=== PATIENT | female | born 1995 | race Caucasian/White ===

== ENCOUNTER 2017-07-20 07:53 | Emergency (ER) | payer SELFPAY ==
[~2017-07-20] VITALS: Ht 160 cm; Wt 55.8 kg
[2017-07-20 08:03] VITALS: BP 125/85
[2017-07-20] MEDS ORDERED: NAPR500T PO (08:19)
[2017-07-20] MEDS ORDERED: HYDR-2758 PO (08:19)
[2017-07-20] MEDS ORDERED: PENI500T PO (08:19)
--- NOTE | 2017-07-20 08:19 | PHYS DOC ---
Past History Past Medical History: No Pertinent History Past Surgical History: No Surgical History Smoking: Non-smoker Alcohol Use: None Drug Use: None Adult General Chief Complaint Chief Complaint: DENTAL PROBLEM HPI HPI Patient is a pleasant 22-year-old female who presents with 3 day history of tooth pain with radiation to the jaw. It began spontaneously 3 days ago she noted increased localized swelling to the lower jaw on the left pain with chewing and hot and cold foods. She denies any prior dental issues, denies any trauma to her mouth, denies any fevers, chills or other symptoms. She denies any URI symptoms, tinnitus, hearing loss or any earache. The pain as throbbing and aching a 10 of 10 at this time. She is not taking [id number] medications treat her symptoms. She does pressure teeth and floss on a regular basis. Review of Systems Review of Systems Constitutional: Denies fever or chills [] Eyes: Denies change in visual acuity, redness, or eye pain [] HENT: Denies nasal congestion or sore throat [] Respiratory: Denies cough Musculoskeletal: Denies back pain or joint pain [] Integument: Denies rash or skin lesions [] Neurologic: Denies headache, focal weakness or sensory changes [] Physical Exam Physical Exam Vital signs on the chart within normal limits. Constitutional: Well developed, well nourished, patient obviously uncomfortable with only slight swelling to the lower left jawline. HENT: Normocephalic, atraumatic, bilateral external ears normal, oropharynx moist, no oral exudates, nose normal. She has a slight irritation to the gingival mucosa with mild soft tissue swelling around tooth #17 patient looks as she's having an eruption of her wisdom tooth. There is no obvious dental caries, there is minimal tenderness to percussion. She has no trismus[] Eyes: PERRLA, EOMI, conjunctiva normal, no discharge. [] Neck: Normal range of motion, no tenderness, supple, no stridor. [] Cardiovascular:Heart rate regular rhythm, no murmur [] Lungs & Thorax: Bilateral breath sounds clear to auscultation [] Skin: Warm, dry, no erythema, no rash. [] Neurologic: Alert and oriented X 3, [] Psychologic: Affect normal, judgement normal, mood normal. [] EKG EKG [] Radiology/Procedures Radiology/Procedures [] Course & Med Decision Making Course & Med Decision Making Pertinent Labs and Imaging studies reviewed. (See chart for details) patient presents with gingival irritation associated with wisdom tooth eruption. There is no obvious signs of concomitant abscess or buccal or lingual gingival cellulitis. [] Dragon Disclaimer Dragon Disclaimer This chart was dictated in whole or in part using Voice Recognition software in a busy, high-work load, and often noisy Emergency Department environment. It may contain unintended and wholly unrecognized errors or omissions. Departure Departure: Impression: Primary Impression: Dental caries Additional Impression: Pericoronitis Disposition: HOME, SELF-CARE Condition: IMPROVED Referrals: PCP,NO (PCP) Patient Instructions: Dental Caries, Pericoronitis Additional Instructions: My discharge plan Follow up: In addition patient is asked to followup with their primary doctor, within a week for followup examination and to address patient's ongoing medical conditions. Because patient does not have a regular medical doctor, a local physician Resource Sheet will be provided to establish care primary care. Patient is advised that in the Emergency Department primary complaints are addressed and only in light of known signs and symptoms. Patient should return immediately to the emergency department if new signs and symptoms develop or patient's condition worsens in any way. At time of discharge patient was in stable condition and had verbalized understanding of the discharge instructions. Please follow-up with her local dentist as well to help you with this particular issue with the eruption of the wisdom tooth. We have provided today would not fix this issue permanently but only treat symptoms. He will need more definitive management please Scripts Hydrocodone Bit/Acetaminophen (HYDROCODONE-APAP 5-325 ) 1 Each Tablet 1 TAB PO PRN Q6HRS Y for PAIN for 5 Days, #10 TAB 0 Refills Prov: KATHERINE KIMBALL MD 07/20/17 Penicillin V Potassium (PENICILLIN V POTASSIUM) 500 Mg Tablet 1 TAB PO QID, #40 TAB Prov: KATHERINE KIMBALL MD 07/20/17 Naproxen (NAPROSYN) 500 Mg Tablet 1 TAB PO BID, #20 TAB 1 Refill Prov: KATHERINE KIMBALL MD 07/20/17 Problem Qualifiers KATHERINE KIMBALL MD Jul 20, 2017 08:19
== END 2017-07-20 08:24 | disposition home or self-care (01) ==
LOC: ER 07:53
DX: K02.9 Dental caries, unspecified (principal); K05.30 Chronic periodontitis, unspecified
CPT/HCPCS: 99283

== ENCOUNTER 2017-09-04 13:06 | Emergency (ER) | payer MEDICAID ==
[~2017-09-04] VITALS: Ht 160 cm; Wt 55.8 kg
[~2017-09-04 13:06] MED LIST: HYDR-2758 PO; NAPR500T PO; PENI500T PO
[2017-09-04 13:20] VITALS: BP 125/85
--- NOTE | 2017-09-04 13:54 | PHYS DOC ---
General Chief Complaint: CHEST PAIN Stated Complaint: N/V Time Seen by MD: 13:53 Source: patient Exam Limitations: no limitations Problems: History of Present Illness Initial Comments Epigastric pain. Patient states that for the past 2 days she's had by mouth intolerance with consistent nausea and vomiting and dry heaves. She's seen no blood or mucus, she feels very dehydrated and denies the chance of because her spouse has vasectomy. She denies travel or bad food exposure, no fever chills she's had some body aches and headache today when up and active. Patient also complains of pain with deep breaths and certain movements, she trace of the outline of her diaphragm from the epigastrium bilaterally around to her back. She states it hurts when she pushes here as I observe her to push under her ribs into the diaphragm muscle. She denies any actual chest pain or trouble breathing no cough or dyspnea on exertion. ED vital signs are stable. Timing/Duration: other (2 days) Severity: severe Modifying Factors: worse with eating Associated Symptoms: headaches, nausea/vomiting, other Allergies: Coded Allergies: No Known Drug Allergies (Unverified , 07/20/17) Past Medical History Medical History: no pertinent history Surgical History: noncontributory Para: 2 : 2 Social History Smoker: non-smoker Alcohol: none Drugs: none Review of Systems Constitutional: denies chills, denies diaphoresis, denies fever, malaise Respiratory: denies cough, denies shortness of breath, denies wheezing Cardiovascular: see HPI, denies chest pain, denies palpitations, denies syncope Gastrointestinal: see HPI, abdominal pain, denies constipation, diarrhea, nausea, vomiting Genitourinary: denies dysuria, denies frequency, denies hematuria Musculoskeletal: see HPI, denies back pain, denies joint swelling, denies neck pain Psychiatric/Neurological: headache, denies numbness, denies paresthesia, denies weakness Hematologic/Lymphatic: denies blood clots, denies easy bleeding, denies easy bruising ( of) Physical Exam General Appearance: WD/WN, mild distress Eyes: bilateral eye normal inspection, bilateral eye PERRL, bilateral eye EOMI Ear, Nose, Throat: hearing grossly normal, normal ENT inspection (dry membranes , piercing left nare), normal pharynx Neck: non-tender, supple Respiratory: normal breath sounds, no respiratory distress Cardiovascular: normal peripheral pulses, regular rate, rhythm Gastrointestinal: normal bowel sounds, soft, no organomegaly, other (negative Arevalo negative McBurney, generalized abdominal wall muscle and anterior diaphragm tenderness to palpation no rebound or guarding no masses palpable.) Rectal: deferred Back: no CVA tenderness, no vertebral tenderness Extremities: normal range of motion, non-tender, normal inspection Neurologic/Psychiatric: network developer II-XII nml as tested, no motor/sensory deficits, alert, normal mood/affect, oriented x 3 Skin: normal color, warm/dry Orders, Labs, Meds I discussed findings with the patient and she is reassured and relieved. I discussed treatment options, the patient is offered IV hydration and anti- emetics however she states she has small children at home and would like to get back to them. I discussed oral and FL medications as well as [id number] medications, discussed oral hydration and dietary recommendations moving forward. Signs and symptoms to monitor as well as urgent reasons to return the emergency department were discussed and the patient's questions were answered to her satisfaction. She expressed agreement and understanding with the treatment plan. Departure Time of Disposition: 13:57 Disposition: 01 HOME, SELF-CARE Diagnosis: gastroenteritis likely viral, dehydration, diaphra Condition: STABLE Patient Instructions: Dehydration, Adult, Ohon-[id number], Viral Gastroenteritis, Bhet-[id number] Additional Instructions: Clear liquids today, advance to bland diet tomorrow as tolerated. Aggressive hydration with Gatorade or water. Eat one banana daily to keep potassium levels up while dehydrated. Prescription: Zofran ODT, Phenergan 25 mg suppository Follow-up with your doctor in 3-5 days if no improvement. Return to the ED with new or changing symptoms. ANUJA BEY DO Sep 04, 2017 13:54
[2017-09-04] MEDS ORDERED: ONDA4TAB10 PO (13:56)
[2017-09-04] MEDS ORDERED: PROM25SU32 RC (13:56)
[2017-09-04] MEDS ORDERED: ONDANSETRON ODT 4 MG TAB.RAPDIS PO ONE (14:00)
--- NOTE | 2017-09-05 09:43 | EKG ---
[address] [address] Test Date: 2017-09-04 Test Time: 13:17:45 Pat Name: PENNY VILLARREAL Department: Room: Gender: F Ironworker: KENNEDY : 1995 Requested By: ANUJA BEY Order Number: [id number] Reading MD: Robinson Alba MD Measurements Intervals [place] Rate: 67 P: 58 MI: 136 QRS: 80 QRSD: 80 T: 51 QT: 402 QTc: 428 Interpretive Statements SINUS RHYTHM Electronically Signed On 09-05-2017 10:10:01 PIPE STEM REPAIRER by Robinson Alba MD
== END 2017-09-04 14:05 | disposition home or self-care (01) ==
LOC: ER 13:06
DX: K52.9 Noninfective gastroenteritis and colitis, unspecified (principal); E86.0 Dehydration; R51 Headache
CPT/HCPCS: 99283; Q0162

== ENCOUNTER 2017-09-06 09:47 | Emergency (ER) | payer SELFPAY ==
[~2017-09-06] VITALS: Ht 160 cm; Wt 55.9 kg
[~2017-09-06 09:47] MED LIST changes: +ONDA4TAB10 PO; +PROM25SU32 RC
[2017-09-06] MEDS ORDERED: IV NORMAL SALINE 1,000ML 1,000 ML IV ONE ×2 (10:00→11:00)
[2017-09-06 10:27] LABS: BASO # 0.1 x10^3/uL (0.0-0.2); BASO % 1 % (0-3); EOS # 0.1 x10^3/uL (0.0-0.7); EOS % 1 % (0-3); HEMATOCRIT 47.3 % (36.0-47.0); HEMOGLOBIN 16.7 g/dL (12.0-15.5); LYMPH # 1.8 x10^3/uL (1.0-4.8); LYMPH % 15 % (24-48); MEAN CORPUSCULAR HEMOGLOBIN 33 pg (25-35); MEAN CORPUSCULAR HGB CONC 35 g/dL (31-37); MEAN CORPUSCULAR VOLUME 94 fL (79-100); MONO % 9 % (0-9); NEUT # 8.9 x10^3uL (1.8-7.7); NEUT % 75 % (31-73); PLATELET COUNT 245 x10^3/uL (140-400); RED BLOOD COUNT 5.05 x10^6/uL (3.50-5.40); RED CELL DISTRIBUTION WIDTH 11.7 % (11.5-14.5); WHITE BLOOD COUNT 11.9 x10^3/uL (4.0-11.0)
[2017-09-06] MEDS ORDERED: ONDANSETRON PF 4 MG/2 ML VIAL. IV ONE (10:30)
[2017-09-06 10:42] LABS: ALBUMIN 5.3 g/dL (3.4-5.0); ALBUMIN/GLOBULIN RATIO 1.4 (1.0-1.7); CALCIUM 9.8 mg/dL (8.5-10.1); CREATININE 1.1 mg/dL (0.6-1.0); GFR 63.3; MAGNESIUM 2.2 mg/dL (1.8-2.4); POTASSIUM 3.2 mmol/L (3.5-5.1); TOTAL PROTEIN 9.2 g/dL (6.4-8.2)
[2017-09-06] MEDS ORDERED: POTASSIUM CHLORIDE 20MEQ 100 ML IV ONE (11:30)
[2017-09-06] MEDS ORDERED: IOHEXOL 300 MG/ML 75 ML VIAL. IV ONE (11:30)
[2017-09-06] MEDS ORDERED: IOHEXOL 240 MG/ML 50ML VIAL. PO ONE (11:45)
[2017-09-06 12:38] LABS: BILIRUBIN,URINE NEG (NEG); CLARITY,URINE CLOUDY; COLOR,URINE YELLOW; GLUCOSE,URINE NEG (NEG)
[2017-09-06 12:39] LABS: AMORPHOUS SEDIMENT,UR PRESENT /HPF; BACTERIA,URINE 0 /HPF (0-FEW); NITRITE,URINE NEG (NEG); RBC,URINE 0 /HPF (0-2); SQUAMOUS EPITHELIAL CELL,UR MOD /LPF; UROBILINOGEN,URINE 0.2 mg/dL (0.2 mg/dL)
--- NOTE | 2017-09-06 13:09 | RAD ---
CT of the abdomen and pelvis with contrast, 09/06/2017: History: Right lower quadrant pain, vomiting and fever Multidetector CT imaging was performed following oral and IV administration of contrast. The lung bases are clear. No hepatic abnormality is detected. The gallbladder is of normal size. No dense gallstones are seen. No pancreatic abnormality is detected. The spleen is of normal size. No renal or adrenal abnormality is detected. No abdominal or pelvic adenopathy is seen. The ovaries are within normal limits in size. The uterus is unremarkable. There is mild diffuse bladder wall thickening. Poor distention of the urinary bladder is probably containing this appearance. The oral contrast material has not reached the distal small bowel. There are radiopacities mixed with stool in the right colon, probably representing medication. The cecum is low-lying in the pelvis. Portions of what is probably the appendix are visualized, containing gas and a small amount of radiopaque material. No dilated appendix or pericecal inflammation is seen to suggest acute appendicitis. The bowel loops are not dilated. No free air or significant free fluid is evident in the abdomen or pelvis. IMPRESSION: 1. Radiopaque material in the appendix without evidence of acute appendicitis. 2. Mild diffuse bladder wall thickening, probably related to lack of bladder distention. Cystitis cannot be excluded. Clinical correlation is suggested. PQRS Compliance Statement: One or more of the following individualized dose reduction techniques were utilized for this examination: 1. Automated exposure control 2. Adjustment of the mA and/or kV according to patient size 3. Use of iterative reconstruction technique
--- NOTE | 2017-09-06 14:16 | PHYS DOC ---
Past History Past Medical History: No Pertinent History Past Surgical History: No Surgical History Smoking: Non-smoker Alcohol Use: None Drug Use: None Adult General Chief Complaint Chief Complaint: NAUSEA/VOMITING/DIARRHEA HPI HPI Patient is a 22 year old F who presents with persistent nausea vomiting diarrhea and abdominal pain. She states that these symptoms began 3-4 days ago and have progressively worsened. She was seen in the emergency room 2 days ago for the same symptoms. States that her pain initially was centrally located in her abdomen and is now more in the right lower quadrant. She describes poor appetite associated with these symptoms. She also feels that she has had fever sweats and chills. Chills that eating makes the symptoms worse as well as moving and palpating the abdomen. Review of Systems Review of Systems Constitutional: Negative except history of present illness Eyes: Denies change in visual acuity, redness, or eye pain [] HENT: Denies nasal congestion or sore throat [] Respiratory: Denies cough or shortness of breath [] Cardiovascular: No additional information not addressed in HPI [] GI: Negative except history of present illness : Denies dysuria or hematuria [] Musculoskeletal: Denies back pain or joint pain [] Integument: Denies rash or skin lesions [] Neurologic: Denies headache, focal weakness or sensory changes [] Endocrine: Denies polyuria or polydipsia [] All other systems were reviewed and found to be within normal limits, except as documented in this note. Family History Family History Noncontributory Current Medications Current Medications Current Medications Medications (Trade) Dose Ordered Sig/Luiza Start Time Stop Time Status Last Admin Dose Admin Iohexol (Omnipaque 240 Mg/ml) 30 ml 1X ONCE 09/06/17 11:45 09/06/17 11:46 DC 09/06/17 12:20 30 ML Iohexol (Omnipaque 300 Mg/ml) 75 ml 1X ONCE 09/06/17 11:30 09/06/17 11:35 DC 09/06/17 12:49 75 ML Ondansetron HCl (Zofran) 4 mg 1X ONCE 09/06/17 10:30 09/06/17 10:31 DC 09/06/17 10:30 4 MG Potassium Chloride 100 ml @ 50 mls/hr 1X ONCE 09/06/17 11:30 09/06/17 13:29 DC 09/06/17 13:06 50 MLS/HR Sodium Chloride 1,000 ml @ 250 mls/hr 1X ONCE 09/06/17 11:00 09/06/17 14:59 09/06/17 12:10 250 MLS/HR Allergies Allergies Allergies Coded Allergies Type Severity Reaction Last Updated Verified No Known Drug Allergies 07/20/17 No Physical Exam Physical Exam Constitutional: Well developed, well nourished, non-toxic appearance. Mild distress noted HENT: Normocephalic, atraumatic, bilateral external ears normal, oropharynx moist, no oral exudates, nose normal. Eyes: EOMI, conjunctiva normal, no discharge. Neck: Normal range of motion, no tenderness, supple, no stridor. Cardiovascular:Heart rate regular rhythm, Lungs & Thorax: Bilateral breath sounds clear to auscultation [] Abdomen: Bowel sounds normal, soft, no masses, no pulsatile masses. Mild generalized tenderness with moderate tenderness in the right lower quadrant Skin: Warm, dry, no erythema, no rash. [] Back: No tenderness, no CVA tenderness. [] Extremities: No tenderness, no cyanosis, no clubbing, ROM intact, no edema. [] Neurologic: Alert and oriented X 3, normal motor function, normal sensory function, no focal deficits noted. [] Psychologic: Affect normal, judgement normal, mood normal. [] Current Patient Data Vital Signs Vital Signs Date Time Temp Pulse Resp B/P (MAP) Pulse Ox O2 Delivery O2 Flow Rate FiO2 09/06/17 10:20 97.7 76 20 96 Room Air Lab Results Laboratory Tests Test 09/06/17 10:13 09/06/17 12:13 09/06/17 13:28 White Blood Count 11.9 x10^3/uL (4.0-11.0) H Red Blood Count 5.05 x10^6/uL (3.50-5.40) Hemoglobin 16.7 g/dL (12.0-15.5) H Hematocrit 47.3 % (36.0-47.0) H Mean Corpuscular Volume 94 fL (79-100) Mean Corpuscular Hemoglobin 33 pg (25-35) Mean Corpuscular Hemoglobin Concent 35 g/dL (31-37) Red Cell Distribution Width 11.7 % (11.5-14.5) Platelet Count 245 x10^3/uL (140-400) Neutrophils (%) (Auto) 75 % (31-73) H Lymphocytes (%) (Auto) 15 % (24-48) L Monocytes (%) (Auto) 9 % (0-9) Eosinophils (%) (Auto) 1 % (0-3) Basophils (%) (Auto) 1 % (0-3) Neutrophils # (Auto) 8.9 x10^3uL (1.8-7.7) H Lymphocytes # (Auto) 1.8 x10^3/uL (1.0-4.8) Monocytes # (Auto) 1.0 x10^3/uL (0.0-1.1) Eosinophils # (Auto) 0.1 x10^3/uL (0.0-0.7) Basophils # (Auto) 0.1 x10^3/uL (0.0-0.2) Sodium Level 136 mmol/L (136-145) Potassium Level 3.2 mmol/L (3.5-5.1) L Chloride Level 97 mmol/L (98-107) L Carbon Dioxide Level 26 mmol/L (21-32) Anion Gap 13 (6-14) Blood Urea Nitrogen 19 mg/dL (7-20) Creatinine 1.1 mg/dL (0.6-1.0) H Estimated GFR (Cockcroft-Gault) 63.3 BUN/Creatinine Ratio 17 (6-20) Glucose Level 100 mg/dL (70-99) H Calcium Level 9.8 mg/dL (8.5-10.1) Magnesium Level 2.2 mg/dL (1.8-2.4) Total Bilirubin 4.0 mg/dL (0.2-1.0) H Aspartate Amino Transferase (AST) 18 U/L (15-37) Alanine Aminotransferase (ALT) 28 U/L (14-59) Alkaline Phosphatase 54 U/L (46-116) Total Protein 9.2 g/dL (6.4-8.2) H Albumin 5.3 g/dL (3.4-5.0) H Albumin/Globulin Ratio 1.4 (1.0-1.7) Urine Collection Type Unknown Urine Color Yellow Urine Clarity Cloudy Urine pH 8.5 Urine Specific [place] 1.015 Urine Protein 30 mg/dl (NEG-TRACE) Urine Glucose (UA) Neg mg/dL (NEG) Urine Ketones (Stick) >=160 mg/dL (NEG) Urine Blood Neg (NEG) Urine Nitrite Neg (NEG) Urine Bilirubin Neg (NEG) Urine Urobilinogen Dipstick 0.2 mg/dL (0.2 mg/dL) Urine Leukocyte Esterase Neg (NEG) Urine RBC 0 /HPF (0-2) Urine WBC 1-4 /HPF (0-4) Urine Squamous Epithelial Cells Mod /LPF Urine Amorphous Sediment Present /HPF Urine Bacteria 0 /HPF (0-FEW) Urine Mucus Slight /LPF POC Urine HCG, Qualitative hcg negative (Negative) EKG EKG [] Radiology/Procedures Radiology/Procedures CT abdomen and pelvis Impressions: Radiology report was reviewed. Radiopaque material was noted in the appendix without evidence of acute appendicitis. Course & Med Decision Making Course & Med Decision Making Pertinent Labs and Imaging studies reviewed. (See chart for details) [] Dragon Disclaimer Dragon Disclaimer This electronic medical record was generated, in whole or in part, using a voice recognition dictation system. Julianna was given IV fluids and nausea medication. She did have a CT with contrast and felt that her pain was moderately worse after drinking oral contrast. She has been unable to drink any other liquids due to nausea and pain. Surgery was contacted by phone and the case was reviewed. Given her symptoms of generalized pain progressing to localized pain with nausea vomiting diarrhea and decreased appetite early appendicitis is possible. Surgery recommended transfer for surgical evaluation. Departure Departure: Impression: Primary Impression: Persistent vomiting Disposition: 05 XFER OTHER Condition: STABLE Referrals: PCP,NO (PCP) CLARIBEL BURNS MD Sep 06, 2017 14:16
[2017-09-06 16:11] VITALS: BP 116/79
== END 2017-09-06 16:43 | disposition short-term general hospital (02) ==
LOC: ER 09:47
DX: R11.2 Nausea with vomiting, unspecified (principal); R19.7 Diarrhea, unspecified; R10.84 Generalized abdominal pain
CPT/HCPCS: 36415; 74177; 80053; 81001; 81025; 82248; 83735; 85025; 96361; 96365; 96366; 96375; 99285; J2405; J3480; Q9966; Q9967; J7030

== ENCOUNTER 2019-12-27 08:40 | Emergency (ER) | payer SELFPAY ==
[~2019-12-27] VITALS: Ht 160 cm; Wt 67.7 kg
[~2019-12-27 08:40] MED LIST changes: +HYDR-2155 PO; -HYDR-2758 PO; +NAPR-683 PO; -NAPR500T PO
[2019-12-27 08:45] VITALS: BP 132/80
[2019-12-27 10:10] LABS: BILIRUBIN,URINE NEG (NEG); CLARITY,URINE HAZY; COLOR,URINE YELLOW; GLUCOSE,URINE NEG (NEG); NITRITE,URINE NEG (NEG); UROBILINOGEN,URINE 0.2 mg/dL (0.2 mg/dL)
[2019-12-27 10:11] LABS: BACTERIA,URINE FEW /HPF (0-FEW); SQUAMOUS EPITHELIAL CELL,UR FEW /LPF
--- NOTE | 2019-12-27 10:17 | PHYS DOC ---
Past History Past Medical History: No Pertinent History Past Surgical History: No Surgical History Smoking: Non-smoker Alcohol Use: Occasionally Drug Use: None Adult General Chief Complaint Chief Complaint: NAUSEA/VOMITING/DIARRHEA HPI HPI Patient is a 24-year-old female who presented to ER today for evaluation with different complaint. Patient complained of hot flashes, fever and chills sore throat for 2 days. Patient also complained of heartburn. Patient also complained of nausea. Patient also complained of vaginal discharge for a week. Patient is sexually active with 1 partner, her partner had no problem. Patient denies any pain with urination, denies any pain with sexual intercourse, patient described the discharge as white, no foul smelling. Patient complained of urgency with urination but very little urine came out. Patient denies any abdominal pain. Patient denies any pelvic pain. Review of Systems Review of Systems Constitutional: Positive for fever or chills [] Eyes: Denies change in visual acuity, redness, or eye pain [] HENT: Denies nasal congestion or sore throat [] Respiratory: Denies cough or shortness of breath [] Cardiovascular: No additional information not addressed in HPI [] GI: Denies abdominal pain, Positive for nausea, NO vomiting, bloody stools or diarrhea [] : Denies dysuria or hematuria. Positive for vaginal discharge and urinary urgency Musculoskeletal: Denies back pain or joint pain [] Integument: Denies rash or skin lesions [] Neurologic: Denies headache, focal weakness or sensory changes [] Endocrine: Denies polyuria or polydipsia [] All other systems were reviewed and found to be within normal limits, except as documented in this note. Allergies Allergies Allergies Coded Allergies Type Severity Reaction Last Updated Verified No Known Drug Allergies 07/20/17 No Physical Exam Physical Exam Constitutional: Well developed, well nourished, no acute distress, non-toxic appearance. [] HENT: Normocephalic, atraumatic, bilateral external ears normal, oropharynx moist WITH ERYTHEMA, no oral exudates, nose normal. [] Eyes: PERRLA, EOMI, conjunctiva normal, no discharge. [] Neck: Normal range of motion, no tenderness, supple, no stridor. [] Cardiovascular:Heart rate regular rhythm, no murmur [] Lungs & Thorax: Bilateral breath sounds clear to auscultation [] Abdomen: Bowel sounds normal, soft, no tenderness, no masses, no pulsatile masses. [] Skin: Warm, dry, no erythema, no rash. [] Back: No tenderness, no CVA tenderness. [] Extremities: No tenderness, no cyanosis, no clubbing, ROM intact, no edema. [] Neurologic: Alert and oriented X 3, normal motor function, normal sensory function, no focal deficits noted. [] Psychologic: Affect normal, judgement normal, mood normal. [] Current Patient Data Vital Signs Vital Signs Date Time Temp Pulse Resp B/P (MAP) Pulse Ox O2 Delivery O2 Flow Rate FiO2 12/27/19 08:45 98.4 89 16 132/80 (97) 99 Room Air Lab Results Laboratory Tests Test 12/27/19 09:41 12/27/19 09:53 Urine Collection Type Unknown Urine Color Yellow Urine Clarity Hazy Urine pH 5.5 Urine Specific [place] 1.025 Urine Protein Neg (NEG-TRACE) Urine Glucose (UA) Neg mg/dL (NEG) Urine Ketones (Stick) 80 mg/dL (NEG) Urine Blood Small (NEG) Urine Nitrite Neg (NEG) Urine Bilirubin Neg (NEG) Urine Urobilinogen Dipstick 0.2 mg/dL (0.2 mg/dL) Urine Leukocyte Esterase Neg (NEG) Urine RBC 6-10 /HPF (0-2) Urine WBC 1-4 /HPF (0-4) Urine Squamous Epithelial Cells Few /LPF Urine Bacteria Few /HPF (0-FEW) Urine Mucus Mod /LPF POC Urine HCG, Qualitative hcg negative (Negative) EKG EKG [] Radiology/Procedures Radiology/Procedures [] Course & Med Decision Making Course & Med Decision Making Pertinent Labs and Imaging studies reviewed. (See chart for details) Patient says She is not worried about STD, just wanted to be treated for VAGINAL discharge. Dragon Disclaimer Dragon Disclaimer This electronic medical record was generated, in whole or in part, using a voice recognition dictation system. Departure Departure: Impression: Primary Impression: Vaginal discharge Additional Impression: Viral syndrome Disposition: HOME, SELF-CARE Condition: STABLE Referrals: PCP,NO (PCP) Patient Instructions: Vaginitis, [id number], Viral Syndrome Additional Instructions: Thank you for visiting our Emergency Department. We appreciate you trusting us with your care. If any additional problems come up don't hesitate to return to visit us. Please follow up with your primary care provider so they can plan additional care if needed and know about the problem that you had. If symptoms worsen come back to the Emergency Department. Any concerning symptoms that start such as chest pain, shortness of air, weakness or numbness on one side of the body, running high fevers or any other concerning symptoms return to the ER. Problem Qualifiers CLARIBEL MAO DO Dec 27, 2019 10:17
[2019-12-27 10:18] LABS: INFLUENZA A PATIENT NEGATIVE (NEGATIVE); INFLUENZA B PATIENT NEGATIVE (NEGATIVE)
[2019-12-27] MEDS ORDERED: FLUCONAZOLE 100 MG TABLET. PO ONE (10:30)
== END 2019-12-27 11:45 | disposition home or self-care (01) ==
LOC: ER 08:40
DX: N89.8 Other specified noninflammatory disorders of vagina (principal); B34.9 Viral infection, unspecified
CPT/HCPCS: 81001; 81025; 87070; 87804; 87880; 99283

== ENCOUNTER 2020-04-14 11:20 | Emergency (ER) | payer SELFPAY ==
[~2020-04-14] VITALS: Ht 160 cm; Wt 70.3 kg
[2020-04-14] MEDS ORDERED: IV NORMAL SALINE 1,000ML 1,000 ML IV ONE (11:30)
[2020-04-14] MEDS ORDERED: ONDANSETRON PF 4 MG/2 ML VIAL. IVP ONE (11:30)
--- NOTE | 2020-04-14 12:04 | PHYS DOC ---
Past History Past Medical History: No Pertinent History Past Surgical History: No Surgical History Smoking: Non-smoker Alcohol Use: Occasionally Drug Use: None General Adult EDM: Chief Complaint: NAUSEA/VOMITING/DIARRHEA HPI: HPI: 24-year-old female presents with chills and multiple episodes of vomiting. This started around 4 AM this morning. Patient is unable to keep any solids or liquids down. She even tried Pedialyte and threw that up. She is concerned about dehydration. She has global chills, but her temperature has been normal. She was feeling fine yesterday. No known sick contacts. No specific COVID-19 exposures. Review of Systems: Review of Systems: Constitutional: Chills Eyes: Denies change in visual acuity HENT: Denies nasal congestion or sore throat Respiratory: Denies cough or shortness of breath Cardiovascular: Denies chest pain or edema GI: nausea, vomiting. Denies abdominal pain, bloody stools or diarrhea : Denies dysuria Musculoskeletal: Denies back pain or joint pain Integument: Denies rash Neurologic: Denies headache, focal weakness or sensory changes Endocrine: Denies polyuria or polydipsia Lymphatic: Denies swollen glands Psychiatric: Denies depression or anxiety Heart Score: Risk Factors: Risk Factors: DM, Current or recent (<one month) smoker, HTN, HLP, family history of CAD, obesity. Risk Scores: Score 0 - 3: 2.5% MACE over next 6 weeks - Discharge Home Score 4 - 6: 20.3% MACE over next 6 weeks - Admit for Clinical Observation Score 7 - 10: 72.7% MACE over next 6 weeks - Early Invasive Strategies Current Medications: Current Meds: Current Medications Medications (Trade) Dose Ordered Sig/Luiza Start Time Stop Time Status Last Admin Dose Admin Ondansetron HCl (Zofran) 4 mg 1X ONCE 04/14/20 11:30 04/14/20 11:33 DC 04/14/20 11:49 4 MG Sodium Chloride 1,000 ml @ 1,000 mls/hr 1X ONCE 04/14/20 11:30 04/14/20 12:29 04/14/20 11:46 1,000 MLS/HR Allergies: Allergies: Allergies Coded Allergies Type Severity Reaction Last Updated Verified No Known Drug Allergies 07/20/17 No Physical Exam: PE: Constitutional: Well developed, well nourished, shivering, mild acute distress, non-toxic appearance. [] HENT: Normocephalic, atraumatic, bilateral external ears normal, oropharynx moist, no oral exudates, nose normal. [] Eyes: PERRLA, EOMI, conjunctiva normal, no discharge. [] Neck: Normal range of motion, no tenderness, supple, no stridor. [] Cardiovascular: Heart rate regular rhythm, no murmur [] Lungs & Thorax: Bilateral breath sounds clear to auscultation [] Abdomen: Bowel sounds normal, soft, no tenderness, no masses, no pulsatile masses. [] Skin: Warm, dry, no erythema, no rash. [] Back: No tenderness, no CVA tenderness. [] Extremities: No tenderness, no cyanosis, no clubbing, ROM intact, no edema. [] Neurologic: Alert and oriented X 3, normal motor function, normal sensory function, no focal deficits noted. [] Psychologic: Affect normal, judgement normal, mood normal. [] Current Patient Data: Labs: Laboratory Tests Test 04/14/20 11:58 POC Urine HCG, Qualitative hcg negative (Negative) EKG: EKG: [] Radiology/Procedures: Radiology/Procedures: [] Course & Med Decision Making: Course & Med Decision Making Pertinent Labs and Imaging studies reviewed. (See chart for details) The patient was given 4 mg of Zofran and 10 mg of Compazine IV. This did control her vomiting. She was rehydrated with normal saline 1 L. She feels well enough to go home. Her labs are unremarkable. I will discharge her with Zofran ODT tablets. She is stable for discharge at this time. [] Dragon Disclaimer: Dragon Disclaimer: This electronic medical record was generated, in whole or in part, using a voice recognition dictation system. Departure Departure: Impression: Primary Impression: Nausea & vomiting Qualified Codes: R11.2 - Nausea with vomiting, unspecified Disposition: 01 HOME/RESIDENCE PRIOR TO ADM Condition: STABLE Referrals: PCP,NO (PCP) Patient Instructions: Nausea and Vomiting, [id number] Scripts Ondansetron (ONDANSETRON ODT) 4 Mg Tab.rapdis 1 TAB PO PRN Q6-8HRS PRN for VOMITING, #16 TAB Prov: SHAUN RENTERIA DO 04/14/20 Justification of Admission: Justification of Admission: Justification of Admission Dx: N/A SHAUN RENTERIA DO Apr 14, 2020 12:04
[2020-04-14 12:10] LABS: BASO # 0.1 x10^3/uL (0.0-0.2); BASO % 1 % (0-3); EOS % 0 % (0-3); HEMOGLOBIN 14.8 g/dL (12.0-15.5); LYMPH # 1.7 x10^3/uL (1.0-4.8); LYMPH % 9 % (24-48); MEAN CORPUSCULAR HEMOGLOBIN 32 pg (25-35); MEAN CORPUSCULAR HGB CONC 34 g/dL (31-37); MEAN CORPUSCULAR VOLUME 93 fL (79-100); MONO # 0.9 x10^3/uL (0.0-1.1); MONO % 5 % (0-9); NEUT % 86 % (31-73); PLATELET COUNT 315 x10^3/uL (140-400); RED BLOOD COUNT 4.61 x10^6/uL (3.50-5.40); RED CELL DISTRIBUTION WIDTH 11.9 % (11.5-14.5); WHITE BLOOD COUNT 19.7 x10^3/uL (4.0-11.0)
[2020-04-14 12:12] LABS: CALCIUM 9.3 mg/dL (8.5-10.1); GFR 69.3; POTASSIUM 3.6 mmol/L (3.5-5.1)
[2020-04-14 12:14] LABS: BILIRUBIN,URINE NEG (NEG); CLARITY,URINE HAZY; COLOR,URINE YELLOW; GLUCOSE,URINE NEG (NEG)
[2020-04-14 12:15] LABS: BACTERIA,URINE FEW /HPF (0-FEW); NITRITE,URINE NEG (NEG); SQUAMOUS EPITHELIAL CELL,UR FEW /LPF; UROBILINOGEN,URINE 0.2 mg/dL (0.2 mg/dL)
[2020-04-14 12:19] LABS: ALBUMIN 4.6 g/dL (3.4-5.0); ALBUMIN/GLOBULIN RATIO 1.2 (1.0-1.7); TOTAL BILIRUBIN 1.1 mg/dL (0.2-1.0); TOTAL PROTEIN 8.3 g/dL (6.4-8.2)
[2020-04-14 12:35] LABS: % BANDS 2 % (0-9); % LYMPHS 7 % (24-48); % MONOS 4 % (0-10); % SEGS 87 % (35-66)
[2020-04-14 12:40] LABS: PLT ESTIMATE ADEQUATE (ADEQUATE)
[2020-04-14] MEDS ORDERED: PROCHLORPERAZINE 10 MG/2 ML VIAL. IV ONE (13:15)
[2020-04-14 13:22] VITALS: BP 127/65
[2020-04-14] MEDS ORDERED: MORPHINE SULFATE 4 MG/ML DISP.SYRIN. IV ONE (13:45)
[2020-04-14] MEDS ORDERED: IOHEXOL 300 MG/ML 75 ML VIAL. IV ONE (13:45)
[2020-04-14] MEDS ORDERED: ONDA4TAB12 PO (13:47)
== END 2020-04-14 13:53 | disposition home or self-care (01) ==
LOC: ER 11:20
DX: R11.2 Nausea with vomiting, unspecified (principal); R50.9 Fever, unspecified
CPT/HCPCS: 36415; 80053; 81001; 81025; 83690; 85007; 85025; 96361; 96374; 96375; 99284; J0780; J2405; J7030

== ENCOUNTER 2021-04-20 05:53 | Emergency (ER) | payer SELFPAY ==
[~2021-04-20] VITALS: Ht 160 cm; Wt 75.0 kg
[~2021-04-20 05:53] MED LIST changes: +ONDA4TAB12 PO
--- NOTE | 2021-04-20 05:58 | PHYS DOC ---
Past History Past Medical History: No Pertinent History Past Surgical History: Cholecystectomy Smoking: Non-smoker Alcohol Use: Occasionally Drug Use: None Adult General HPI HPI Patient is a 25-year-old female presenting for nausea vomit diarrhea. Onset of symptoms was approximately 3 hours ago and woke her from sleep. Patient reports eating kalie last night, denies any known sick contacts or recent travel. She is concerned she has gastroenteritis and is dehydrated as this is happened to her in the past. Reports she woke up with generalized abdominal cramping, nausea and has had numerous episodes of nonbloody nonbilious emesis and looser stools than usual. She has been afebrile. Denies any pertinent med ical history, no medications taken on a daily basis. Denies tobacco use, admits frequent but not dependent alcohol use with last use yesterday evening drinking x2 shots of liquor, denies marijuana or other illicit drug use. Patient has had a prior cholecystectomy otherwise no other abdominal surgeries. Review of Systems Review of Systems Fourteen body systems of review of systems have been reviewed. See HPI for pertinent positives and negative responses, other tillman all other systems are negative, non-pertinent or non-contributory Allergies Allergies Allergies Coded Allergies Type Severity Reaction Last Updated Verified No Known Drug Allergies 07/20/17 No Physical Exam Physical Exam Constitutional: Well developed, well nourished, no acute distress, non-toxic appearance. HENT: Normocephalic, atraumatic, bilateral external ears normal, oropharynx dry, no oral exudates, nose normal. Eyes: PERRLA, EOMI, conjunctiva normal, no discharge. Neck: Normal range of motion, no tenderness, supple, no stridor. Cardiovascular: Heart rate regular, sinus rhythm, no murmurs rubs or gallops Lungs & Thorax: Bilateral breath sounds clear to auscultation Abdomen: Bowel sounds normal, soft, generalized abdominal tenderness without rebound but guarding is present, no masses, no pulsatile masses. Nonsurgical abdomen, no peritoneal signs Skin: Warm, dry, no erythema, no rash. Back: No tenderness, no CVA tenderness. Extremities: No tenderness, no cyanosis, no clubbing, ROM intact, no edema. Neurologic: Alert and oriented X 3, grossly normal motor & sensory function, no focal deficits noted. Psychologic: Anxious affect and mood Current Patient Data Vital Signs Vital Signs Date Time Temp Pulse Resp B/P (MAP) Pulse Ox O2 Delivery O2 Flow Rate FiO2 04/20/21 06:03 97.6 79 20 95 Room Air Vital Signs Date Time Temp Pulse Resp B/P (MAP) Pulse Ox O2 Delivery O2 Flow Rate FiO2 04/20/21 06:03 97.6 79 20 95 Room Air Lab Results Laboratory Tests Test 04/20/21 06:05 04/20/21 06:08 04/20/21 06:20 Urine Collection Type Unknown Urine Color Yellow Urine Clarity Clear Urine pH >8.5 Urine Specific Desdemona 1.020 Urine Protein 100 mg/dl Urine Glucose (UA) Neg mg/dL Urine Ketones (Stick) Trace mg/dL Urine Blood Mod Urine Nitrite Neg Urine Bilirubin Neg Urine Urobilinogen Dipstick 1.0 mg/dL Urine Leukocyte Esterase Neg Urine RBC 11-20 /HPF Urine WBC Rare /HPF Urine Squamous Epithelial Cells Occ /LPF Urine Bacteria 0 /HPF Urine Mucus Slight /LPF White Blood Count 15.2 x10^3/uL Red Blood Count 4.57 x10^6/uL Hemoglobin 15.1 g/dL Hematocrit 43.6 % Mean Corpuscular Volume 95 fL Mean Corpuscular Hemoglobin 33 pg Mean Corpuscular Hemoglobin Concent 35 g/dL Red Cell Distribution Width 13.1 % Platelet Count 302 x10^3/uL Neutrophils (%) (Auto) 80 % Lymphocytes (%) (Auto) 13 % Monocytes (%) (Auto) 6 % Eosinophils (%) (Auto) 0 % Basophils (%) (Auto) 1 % Neutrophils # (Auto) 12.2 x10^3uL Lymphocytes # (Auto) 2.0 x10^3/uL Monocytes # (Auto) 0.9 x10^3/uL Eosinophils # (Auto) 0.0 x10^3/uL Basophils # (Auto) 0.1 x10^3/uL Segmented Neutrophils % 73 % Band Neutrophils % 1 % Lymphocytes % 21 % Monocytes % 4 % Metamyelocytes % 1 % Platelet Estimate Adequate Sodium Level 145 mmol/L Potassium Level 3.2 mmol/L Chloride Level 106 mmol/L Carbon Dioxide Level 26 mmol/L Anion Gap 13 Blood Urea Nitrogen 13 mg/dL Creatinine 1.0 mg/dL Estimated GFR (Cockcroft-Gault) 68.7 BUN/Creatinine Ratio 13 Glucose Level 131 mg/dL Calcium Level 8.4 mg/dL Total Bilirubin 1.4 mg/dL Aspartate Amino Transf (AST/SGOT) 17 U/L Alanine Aminotransferase (ALT/SGPT) 20 U/L Alkaline Phosphatase 77 U/L Total Protein 7.6 g/dL Albumin 4.4 g/dL Albumin/Globulin Ratio 1.4 Lipase 156 U/L Bedside Urine HCG, Qualitative hcg negative Current Medications Medications (Trade) Dose Ordered Sig/Luiza Route PRN Reason Start Time Stop Time Status Last Admin Dose Admin Sodium Chloride 1,000 ml @ 1,000 mls/hr 1X ONCE IV 04/20/21 06:30 04/20/21 07:29 DC 04/20/21 06:58 Fentanyl Citrate (Fentanyl 2ml Vial) 50 mcg 1X ONCE IVP 04/20/21 06:30 04/20/21 06:33 DC 04/20/21 06:58 Ondansetron HCl (Zofran) 4 mg 1X ONCE IVP 04/20/21 06:30 04/20/21 06:33 DC 04/20/21 06:57 Multi-Ingredient Mouthwash/Gargle (Gi Cocktail) 20 ml 1X ONCE PO 04/20/21 07:30 04/20/21 07:35 DC 04/20/21 07:32 Multi-Ingredient Mouthwash/Gargle (Gi Cocktail) 20 ml STK-MED ONCE .ROUTE 04/20/21 07:28 04/20/21 07:28 DC Metoclopramide HCl (Reglan Vial) 10 mg 1X ONCE IVP 04/20/21 08:00 04/20/21 08:01 DC Morphine Sulfate (Morphine 4mg Syringe) 4 mg 1X ONCE IV 04/20/21 08:00 04/20/21 08:01 DC Potassium Chloride (Klor-Con) 40 meq 1X ONCE PO 04/20/21 08:00 04/20/21 08:01 DC EKG EKG [] Radiology/Procedures Radiology/Procedures [] Heart Score C/O Chest Pain: No Risk Factors: Risk Factors: DM, Current or recent (<one month) smoker, HTN, HLP, family history of CAD, obesity. Risk Scores: Risk Factors: DM, Current or recent (<one month) smoker, HTN, HLP, family history of CAD, obesity. Course & Med Decision Making Course & Med Decision Making ABCs unremarkable. I disclosed entirety of ER findings and discussed most likely diagnosis of likely self-limiting gastrointestinal disease such as gastritis versus gastroenteritis versus other. Patient responded to ER intervention that included IV fluid rehydration, antiemetic and pain medication. Patient symptoms did not ever fully resolve while in ER and so, I disclosed potential role for imaging. Patient feels that her current episode is similar to past episodes of gastroenteritis and feels it will be self-limiting, she is deferring CT imaging of abdomen and requesting to go home for continued supportive care. As such, I stressed need for close outpatient follow-up to review today's ER visit. Strict return precautions were also discussed at length with good understanding by patient. Patient voiced understanding and agreement with the plan. Patient knows to come back for repeat evaluation if concerning signs or symptoms present prior to outpatient follow-up. Hemodynamically stable, ambulatory and well- appearing at time of disposition. Dragon Disclaimer Dragon Disclaimer This electronic medical record was generated, in whole or in part, using a voice recognition dictation system. Departure Departure: Impression: Primary Impression: Nausea, vomiting, and diarrhea Disposition: 01 HOME / SELF CARE / HOMELESS Condition: IMPROVED Referrals: PCP,NO (PCP) Patient Instructions: Nausea and Vomiting Additional Instructions: You were seen for nausea, vomit and diarrhea. You most likely have a viral illness which should resolve in the next few days to a week. As mention, you might be suffering from a condition called gastritis which you have suffered from in the past and should respond to similar supportive care practices. Please practice good bowel rest and avoid any hot and spicy foods, excessive caffeine etc. You should also utilize prescribed antinausea medicine as needed. Prioritize good fluids such as Pedialyte. You should return to the ED if you develop abdominal pain, fever > 100.3, black/bloody stools, black/bloody vomiting, cannot keep water down, or any other new or concerning symptoms. Scripts Metoclopramide Hcl (REGLAN) 5 Mg Tablet 1 TAB PO TID for NAUSEA for 5 Days, #15 TAB 0 Refills 1 hour prior to procedure Prov: DIMA SANTILLAN DO 04/20/21 DIMA SANTILLAN DO Apr 20, 2021 05:58
[2021-04-20] MEDS ORDERED: IV NORMAL SALINE 1,000ML 1,000 ML IV ONE (06:30)
[2021-04-20] MEDS ORDERED: ONDANSETRON PF 4 MG/2 ML VIAL. IVP ONE (06:30)
[2021-04-20 06:41] LABS: BILIRUBIN,URINE NEG (NEG); CLARITY,URINE CLEAR; COLOR,URINE YELLOW; GLUCOSE,URINE NEG (NEG); NITRITE,URINE NEG (NEG)
[2021-04-20 06:43] LABS: BACTERIA,URINE 0 /HPF (0-FEW); SQUAMOUS EPITHELIAL CELL,UR OCC /LPF; WBC,URINE RARE /HPF (0-4)
[2021-04-20 06:49] LABS: BASO # 0.1 x10^3/uL (0.0-0.2); BASO % 1 % (0-3); EOS % 0 % (0-3); HEMATOCRIT 43.6 % (36.0-47.0); HEMOGLOBIN 15.1 g/dL (12.0-15.5); LYMPH % 13 % (24-48); MEAN CORPUSCULAR HEMOGLOBIN 33 pg (25-35); MEAN CORPUSCULAR HGB CONC 35 g/dL (31-37); MEAN CORPUSCULAR VOLUME 95 fL (79-100); MONO # 0.9 x10^3/uL (0.0-1.1); MONO % 6 % (0-9); NEUT # 12.2 x10^3uL (1.8-7.7); NEUT % 80 % (31-73); PLATELET COUNT 302 x10^3/uL (140-400); RED BLOOD COUNT 4.57 x10^6/uL (3.50-5.40); RED CELL DISTRIBUTION WIDTH 13.1 % (11.5-14.5); WHITE BLOOD COUNT 15.2 x10^3/uL (4.0-11.0)
[2021-04-20 06:50] LABS: ALBUMIN 4.4 g/dL (3.4-5.0); ALBUMIN/GLOBULIN RATIO 1.4 (1.0-1.7); CALCIUM 8.4 mg/dL (8.5-10.1); GFR 68.7; POTASSIUM 3.2 mmol/L (3.5-5.1); TOTAL BILIRUBIN 1.4 mg/dL (0.2-1.0); TOTAL PROTEIN 7.6 g/dL (6.4-8.2)
[2021-04-20 07:28] LABS: % BANDS 1 % (0-9); % LYMPHS 21 % (24-48); % METAS 1 % (0-0); % MONOS 4 % (0-10); % SEGS 73 % (35-66)
[2021-04-20] MEDS ORDERED: LIDO:MAALOX 1:1 20 ML SINGLE DOSE. ONE (07:28)
[2021-04-20 07:29] LABS: PLT ESTIMATE ADEQUATE (ADEQUATE)
[2021-04-20] MEDS ORDERED: LIDO:MAALOX 1:1 20 ML SINGLE DOSE. PO ONE (07:30)
[2021-04-20] MEDS ORDERED: POTASSIUM CHLORIDE 20 MEQ TABLET.ER. PO ONE (08:00)
[2021-04-20] MEDS ORDERED: MORPHINE SULFATE 4 MG/ML DISP.SYRIN. IV ONE (08:00)
[2021-04-20] MEDS ORDERED: METOCLOPRAMIDE HCL 10 MG/2 ML VIAL. IVP ONE (08:00)
[2021-04-20] MEDS ORDERED: METO5TAB55 PO (08:22)
[2021-04-20 09:00] VITALS: BP 138/83
== END 2021-04-20 09:00 | disposition home or self-care (01) ==
LOC: ER 05:53
DX: R11.2 Nausea with vomiting, unspecified (principal); R19.7 Diarrhea, unspecified; Z90.49 Acquired absence of other specified parts of digestive tract
CPT/HCPCS: 36415; 80053; 81001; 81025; 83690; 85007; 85025; 96361; 96374; 96375; 99285; J2270; J2405; J2765; J3010; J7030

== ENCOUNTER → 2021-07-10 | Emergency (ER) | payer SELFPAY ==
[~2021-07-10] VITALS: Ht 160 cm; Wt 73.0 kg
[~2021-07-10] MED LIST changes: +CONTRAST GIVEN. MC PRN; +IOHEXOL 300 MG/ML 75 ML VIAL. IV ONE; +IV NORMAL SALINE 1,000ML 1,000 ML IV ONE; +METO5TAB55 PO; +MORPHINE SULFATE 2 MG/ML DISP.SYRIN. IVP ONE; +ONDA4TAB7 PO; +PROCHLORPERAZINE 10 MG/2 ML VIAL. IV ONE; +diphenhydrAMINE 50 MG/ML VIAL IVP ONE; +oxyCODONE IR 5 MG TABLET PO ONE
[2021-07-10 09:18] LABS: BACTERIA,URINE 0 /HPF (0-FEW); BILIRUBIN,URINE NEG (NEG); CLARITY,URINE CLEAR; COLOR,URINE YELLOW; GLUCOSE,URINE NEG (NEG); NITRITE,URINE NEG (NEG); RBC,URINE 0 /HPF (0-2); SQUAMOUS EPITHELIAL CELL,UR OCC /LPF; UROBILINOGEN,URINE 0.2 mg/dL (0.2 mg/dL)
[2021-07-10 09:18] LABS: BASO # 0.1 x10^3/uL (0.0-0.2); BASO % 1 % (0-3); EOS % 0 % (0-3); HEMOGLOBIN 16.2 g/dL (12.0-15.5); LYMPH # 2.6 x10^3/uL (1.0-4.8); LYMPH % 14 % (24-48); MEAN CORPUSCULAR HEMOGLOBIN 32 pg (25-35); MEAN CORPUSCULAR HGB CONC 34 g/dL (31-37); MEAN CORPUSCULAR VOLUME 96 fL (79-100); MONO # 1.1 x10^3/uL (0.0-1.1); MONO % 6 % (0-9); NEUT # 14.6 x10^3uL (1.8-7.7); NEUT % 79 % (31-73); PLATELET COUNT 330 x10^3/uL (140-400); WHITE BLOOD COUNT 18.5 x10^3/uL (4.0-11.0)
[2021-07-10 09:19] LABS: WBC,URINE 0 /HPF (0-4)
[2021-07-10 09:29] LABS: CALCIUM 9.4 mg/dL (8.5-10.1); CREATININE 0.9 mg/dL (0.6-1.0); GFR 76.9; POTASSIUM 3.7 mmol/L (3.5-5.1)
--- NOTE | 2021-07-10 09:33 | PHYS DOC ---
Past History Past Medical History: Other Additional Past Medical Histor: gastritis Past Surgical History: Cholecystectomy Smoking: Non-smoker Alcohol Use: None Drug Use: None General Adult EDM: Chief Complaint: NAUSEA/VOMITING/DIARRHEA HPI: HPI: Patient is a 26 year old female who presents with nausea, vomiting, diarrhea, and abdominal pain. Started this morning. States she has vomited more than 5 times and has had many loose stools. States her stool is yellow in color and has black-colored specks. Vomit has normal appearance without evidence of blood. Denies fever or chills. Abdominal pain is epigastric and left upper quadrant primarily. Started at the same time as her other symptoms. States that she has had this several times before and it has been attributed to gastroenteritis. States that she has had CT scans that were unremarkable in the past. Her last episode was in March of this year where she was seen in this emergency department. She deferred CT imaging at that time. States that she has not had recurrent episodes since. Denies drugs and alcohol Review of Systems: Review of Systems: Constitutional: Denies fever or chills Eyes: Denies change in visual acuity HENT: Denies nasal congestion or sore throat Respiratory: Denies cough or shortness of breath Cardiovascular: Denies chest pain or edema GI: reports abdominal pain, nausea, vomiting, diarrhea. : Denies dysuria Musculoskeletal: Denies back pain or joint pain Integument: Denies rash Neurologic: Denies headache, focal weakness or sensory changes Endocrine: Denies polyuria or polydipsia Lymphatic: Denies swollen glands Psychiatric: Denies depression or anxiety Current Medications: Current Meds: Current Medications Medications (Trade) Dose Ordered Sig/Luiza Start Time Stop Time Status Last Admin Dose Admin Diphenhydramine HCl (Benadryl) 25 mg 1X ONCE 07/10/21 09:15 07/10/21 09:16 DC Info (Do NOT chart on this entry -- for MONITORING) 1 each PRN DAILY PRN 07/10/21 09:15 07/12/21 09:14 Iohexol (Omnipaque 300 Mg/ml) 75 ml 1X ONCE 07/10/21 09:15 07/10/21 09:16 DC Morphine Sulfate (Morphine 2mg Syringe) 2 mg 1X ONCE 07/10/21 09:15 07/10/21 09:16 DC Prochlorperazine Edisylate (Compazine) 10 mg 1X ONCE 07/10/21 09:15 07/10/21 09:16 DC 07/10/21 09:18 10 MG Sodium Chloride 1,000 ml @ 1,000 mls/hr 1X ONCE 07/10/21 09:15 07/10/21 10:14 Allergies: Allergies: Allergies Coded Allergies Type Severity Reaction Last Updated Verified No Known Drug Allergies 07/10/21 No Physical Exam: PE: Constitutional: Well developed, well nourished, no acute distress, non-toxic appearance. [] HENT: Normocephalic, atraumatic, bilateral external ears normal, oropharynx moist, no oral exudates, nose normal. [] Eyes: PERRLA, EOMI, conjunctiva normal, no discharge. [] Neck: Normal range of motion, no tenderness, supple, no stridor. [] Cardiovascular:Heart rate regular rhythm, no murmur [] Lungs & Thorax: Bilateral breath sounds clear to auscultation [] Abdomen: Soft, nondistended. Diffusely tender with guarding and rebound tend erness in the upper quadrants.. [] Skin: Warm, dry, no erythema, no rash. [] Back: No tenderness, no CVA tenderness. [] Extremities: No tenderness, no cyanosis, no clubbing, ROM intact, no edema. [] Neurologic: Alert and oriented X 3, normal motor function, normal sensory function, no focal deficits noted. [] Psychologic: Affect normal, judgement normal, mood normal. [] Current Patient Data: Labs: Laboratory Tests Test 07/10/21 08:30 07/10/21 08:33 Urine Collection Type Unknown Urine Color Yellow Urine Clarity Clear Urine pH 7.5 Urine Specific Patterson 1.020 Urine Protein Neg (NEG-TRACE) Urine Glucose (UA) Neg mg/dL (NEG) Urine Ketones (Stick) Neg mg/dL (NEG) Urine Blood Neg (NEG) Urine Nitrite Neg (NEG) Urine Bilirubin Neg (NEG) Urine Urobilinogen Dipstick 0.2 mg/dL (0.2 mg/dL) Urine Leukocyte Esterase Neg (NEG) Urine RBC 0 /HPF (0-2) Urine WBC 0 /HPF (0-4) Urine Squamous Epithelial Cells Occ /LPF Urine Bacteria 0 /HPF (0-FEW) Urine Mucus Slight /LPF White Blood Count 18.5 x10^3/uL (4.0-11.0) H Red Blood Count 5.00 x10^6/uL (3.50-5.40) Hemoglobin 16.2 g/dL (12.0-15.5) H Hematocrit 48.0 % (36.0-47.0) H Mean Corpuscular Volume 96 fL (79-100) Mean Corpuscular Hemoglobin 32 pg (25-35) Mean Corpuscular Hemoglobin Concent 34 g/dL (31-37) Red Cell Distribution Width 14.0 % (11.5-14.5) Platelet Count 330 x10^3/uL (140-400) Neutrophils (%) (Auto) 79 % (31-73) H Lymphocytes (%) (Auto) 14 % (24-48) L Monocytes (%) (Auto) 6 % (0-9) Eosinophils (%) (Auto) 0 % (0-3) Basophils (%) (Auto) 1 % (0-3) Neutrophils # (Auto) 14.6 x10^3uL (1.8-7.7) H Lymphocytes # (Auto) 2.6 x10^3/uL (1.0-4.8) Monocytes # (Auto) 1.1 x10^3/uL (0.0-1.1) Eosinophils # (Auto) 0.0 x10^3/uL (0.0-0.7) Basophils # (Auto) 0.1 x10^3/uL (0.0-0.2) Platelet Estimate Pending Vital Signs: Vital Signs Date Time Temp Pulse Resp B/P (MAP) Pulse Ox O2 Delivery O2 Flow Rate FiO2 07/10/21 08:23 97.4 92 20 143/77 (99) 97 Room Air EKG: EKG: [] Radiology/Procedures: Radiology/Procedures: CT abdomen pelvis with IV contrast [] Impressions: [address] [id number] IMAGING REPORT Signed PATIENT: ROBIN VILLARREAL ACCOUNT: [id number] : 1995 LOCATION: ER AGE: 26 SEX: F EXAM STATUS: REG ER ORD. PHYSICIAN: MACY ABARCA MD REASON: upper abd pain and tenderness with guarding, n/v omni 300 75ml iv PROCEDURE: CT ABD PELV W/ IV CONTRST ONLY CT ABDOMEN+PELVIS W History: Upper abdominal pain and tenderness. Nausea and vomiting. Comparison: CT abdomen and pelvis 01/04/2020, 09/06/2017 Technique: CT of the abdomen and pelvis with intravenous contrast. Findings: The lung bases are clear. No pleural or pericardial effusion. The liver is unremarkable. Status post cholecystectomy. Normal pancreas, spleen, and adrenals. Punctate, 3 mm right nephrolith. No hydronephrosis or perinephric stranding. Unremarkable decompressed bladder. Normal uterus and ovaries. The stomach and small bowel are unremarkable. The appendix is within normal limits. There is fatty submucosal deposition throughout the colon to the rectum. No pericolonic inflammatory changes or wall thickening is identified. No free fluid or air. No adenopathy. Vasculature is within normal limits. Osseous structures are normal. Impression: 1. No acute findings in the abdomen and pelvis. 2. Fatty deposition throughout the colon to the rectum new from comparison exams can be seen in conditions of inflammatory bowel disease, however no additional findings of inflammatory bowel disease suggests this may be due to weight gain. Correlate with history. ------ Exposure: One or more of the following individualized dose reduction techniques were utilized for this examination: 1. Automated exposure control 2. Adjustment of the mA and/or kV according to patient size 3. Use of iterative reconstruction technique. Electronically signed by: Tera Amador MD (07/10/2021 10:04 AM) [id number] DICTATED AND SIGNED BY: TERA AMADOR MD DATE: 07/10/21 0954 CC: MACY ABARCA MD; PCP,NO ~MTH0 0 Heart Score: C/O Chest Pain: No Risk Factors: Risk Factors: DM, Current or recent (<one month) smoker, HTN, HLP, family history of CAD, obesity. Risk Scores: Score 0 - 3: 2.5% MACE over next 6 weeks - Discharge Home Score 4 - 6: 20.3% MACE over next 6 weeks - Admit for Clinical Observation Score 7 - 10: 72.7% MACE over next 6 weeks - Early Invasive Strategies Course & Med Decision Making: Course & Med Decision Making Pertinent Labs and Imaging studies reviewed. (See chart for details) Patient a 26-year-old female who has had history of recurrent and self-limited spells of N/V/D/abdominal pain who presents with the same. On arrival is afebrile, hemodynamically stable. Appears uncomfortable, and has abdominal tenderness with guarding on exam. We will obtain CBC, CMP, lipase, UA, CT abdomen pelvis. DDx includes gastritis, gastroenteritis, PUD, biliary pathology, pancreatitis. 0933 Labs show evidence of hemoconcentration and mild hyperbilirubinemia to 1.6. LFTs otherwise normal. CT abdomen pelvis showed no acute findings, but did mention increasing fat deposition around the intestines which can be a nonspecific finding of inflammatory bowel disease or simple weight gain. Patient does endorse a 30 lbs weight gain in the past 1-2 years. No evidence of obstructive biliary disease. Elevated hgb so hyperbili is not likely to be related to hemolysis. We will continue to work on symptom control, and if they are controlled feel she can likely be discharged with PCP follow-up. 1013 Kay Disclaimer: Kay Disclaimer: This electronic medical record was generated, in whole or in part, using a voice recognition dictation system. Departure Departure: Referrals: PCP,NO (PCP) Additional Instructions: Your work-up did not show any problems in your abdomen on the CT scan. Given you have had recurrent problems with this I think it would be a good idea to establish with primary care doctor. If you develop high fevers, shaking chills, worsening pain you can return to the emergency department at any time for reevaluation. You can take hydrocodone 5 mg every 4-6 hours. For nausea you can take Zofran 4 mg every 6 hours. Since you do not have a PCP, please call the number for the [facility] at [phone]. Scripts Hydrocodone Bit/Acetaminophen (HYDROCODONE-APAP 5-325 ) 1 Each Tablet 1 TAB PO PRN Q6HRS PRN for PAIN for 2 Days, #8 TAB 0 Refills Prov: MACY ABARCA MD 07/10/21 Ondansetron Hcl (ZOFRAN) 4 Mg Tablet 1 TAB PO Q6HRS for vomiting, #20 TAB Prov: MACY ABARCA MD 07/10/21 MACY ABARCA MD Jul 10, 2021 09:33
[2021-07-10 09:35] LABS: ALBUMIN 4.6 g/dL (3.4-5.0); ALBUMIN/GLOBULIN RATIO 1.3 (1.0-1.7); TOTAL BILIRUBIN 1.6 mg/dL (0.2-1.0); TOTAL PROTEIN 8.2 g/dL (6.4-8.2)
[2021-07-10 09:53] LABS: % LYMPHS 17 % (24-48); % MONOS 5 % (0-10); % SEGS 78 % (35-66)
[2021-07-10 09:54] LABS: OVALOCYTES OCC; PLT ESTIMATE ADEQUATE (ADEQUATE); TEAR DROP CELLS OCC
[2021-07-10 10:03] LABS: U PREG PATIENT NEGATIVE (NEG)
--- NOTE | 2021-07-10 10:06 | RAD ---
CT ABDOMEN+PELVIS W History: Upper abdominal pain and tenderness. Nausea and vomiting. Comparison: CT abdomen and pelvis 01/04/2020, 09/06/2017 Technique: CT of the abdomen and pelvis with intravenous contrast. Findings: The lung bases are clear. No pleural or pericardial effusion. The liver is unremarkable. Status post cholecystectomy. Normal pancreas, spleen, and adrenals. Punctate, 3 mm right nephrolith. No hydroneph rosis or perinephric stranding. Unremarkable decompressed bladder. Normal uterus and ovaries. The stomach and small bowel are unremarkable. The appendix is within normal limits. There is fatty de [place] bmucosal deposition throughout the colon to the rectum. No pericolonic inflammatory changes or wall t hickening is identified. No free fluid or air. No adenopathy. Vasculature is within normal limits. Os seous structures are normal. Impression: 1. No acute findings in the abdomen and pelvis. 2. Fatty deposition throughout the colon to the rectum new from comparison exams can be seen in cond itions of inflammatory bowel disease, however no additional findings of inflammatory bowel disease de [place] santos ggests this may be due to weight gain. Correlate with history. ------ Exposure: One or more of the following individualized dose reduction techniques were utilized for thi s examination: 1. Automated exposure control 2. Adjustment of the mA and/or kV according to patient size 3. Use of iterative reconstruction technique. Electronically signed by: Tera Dean MD (07/10/2021 10:04 AM) [id number]
[2021-07-10 11:20] VITALS: BP 118/82
== END | disposition home or self-care (01) ==
LOC: ER 08:08
DX: K52.9 Noninfective gastroenteritis and colitis, unspecified (principal); Z90.49 Acquired absence of other specified parts of digestive tract
CPT/HCPCS: 36415; 74177; 80053; 81001; 81025; 83690; 85007; 85025; 96361; 96374; 96375; 99285; J0780; J1200; J2270; J7030; Q9967

== ENCOUNTER 2021-08-11 09:28 | Emergency (ER) | payer SELFPAY ==
[~2021-08-11] VITALS: Ht 160 cm; Wt 73.0 kg
[~2021-08-11 09:28] MED LIST changes: -CONTRAST GIVEN. MC PRN; -IOHEXOL 300 MG/ML 75 ML VIAL. IV ONE; -IV NORMAL SALINE 1,000ML 1,000 ML IV ONE; -MORPHINE SULFATE 2 MG/ML DISP.SYRIN. IVP ONE; -PROCHLORPERAZINE 10 MG/2 ML VIAL. IV ONE; -diphenhydrAMINE 50 MG/ML VIAL IVP ONE; -oxyCODONE IR 5 MG TABLET PO ONE
--- NOTE | 2021-08-11 09:51 | PHYS DOC ---
Past History Past Medical History: Other Additional Past Medical Histor: gastritis Past Surgical History: Cholecystectomy Smoking: Non-smoker Alcohol Use: None Drug Use: None General Adult EDM: Chief Complaint: Nausea /vomiting HPI: HPI: 26-year-old female with a past history of gastritis and cholecystectomy presents the emergency department complaining of approximately 9 hours of nausea vomiting and diarrhea that started around 1 in the morning. She reports yellow vomiting and diarrhea with several episodes. She reports that she is intolerant of taking water secondary to her nausea and vomiting. She denies any recent travel, antibiotic use, hospitalizations or similar symptoms in any coinhabitants. She admits to some abdominal pain near her epigastrium along with some burning in her throat which she states is related to her vomiting. The patient denies blood in the stool, fever, chills, chest pain, shortness of breath, urinary symptoms, cough, recent trauma, or any other complaints. Review of Systems: Review of Systems: ROS is otherwise negative except for what was mentioned in the HPI Family History: Family History: Noncontributory Allergies: Allergies: Allergies Coded Allergies Type Severity Reaction Last Updated Verified No Known Drug Allergies 07/10/21 No Physical Exam: PE: Constitutional: Well developed, well nourished, no acute distress, non-toxic appearance. [] HENT: Normocephalic, atraumatic, bilateral external ears normal, oropharynx moist, no oral exudates, nose normal. [] Eyes: PERRLA, EOMI, conjunctiva normal, no discharge. [] Neck: Normal range of motion, no tenderness, supple, no stridor. [] Cardiovascular:Heart rate regular rhythm, no murmur [] Lungs & Thorax: Bilateral breath sounds clear to auscultation [] Abdomen: Bowel sounds normal, soft, no tenderness, no masses, no pulsatile masses. [] Skin: Warm, dry, no erythema, no rash. [] Back: No tenderness, no CVA tenderness. [] Extremities: No tenderness, no cyanosis, no clubbing, ROM intact, no edema. [] Neurologic: Alert and oriented X 3, normal motor function, normal sensory function, no focal deficits noted. [] Psychologic: Affect normal, judgement normal, mood normal. [] Current Patient Data: Labs: Laboratory Tests Test 08/11/21 09:54 08/11/21 10:58 08/11/21 11:20 White Blood Count 15.2 x10^3/uL (4.0-11.0) H Red Blood Count 4.75 x10^6/uL (3.50-5.40) Hemoglobin 15.4 g/dL (12.0-15.5) Hematocrit 45.7 % (36.0-47.0) Mean Corpuscular Volume 96 fL (79-100) Mean Corpuscular Hemoglobin 32 pg (25-35) Mean Corpuscular Hemoglobin Concent 34 g/dL (31-37) Red Cell Distribution Width 13.0 % (11.5-14.5) Platelet Count 252 x10^3/uL (140-400) Neutrophils (%) (Auto) 80 % (31-73) H Lymphocytes (%) (Auto) 13 % (24-48) L Monocytes (%) (Auto) 5 % (0-9) Eosinophils (%) (Auto) 0 % (0-3) Basophils (%) (Auto) 2 % (0-3) Neutrophils # (Auto) 12.2 x10^3uL (1.8-7.7) H Lymphocytes # (Auto) 2.0 x10^3/uL (1.0-4.8) Monocytes # (Auto) 0.7 x10^3/uL (0.0-1.1) Eosinophils # (Auto) 0.0 x10^3/uL (0.0-0.7) Basophils # (Auto) 0.2 x10^3/uL (0.0-0.2) Platelet Estimate Pending Sodium Level 139 mmol/L (136-145) Potassium Level 3.4 mmol/L (3.5-5.1) L Chloride Level 103 mmol/L (98-107) Carbon Dioxide Level 20 mmol/L (21-32) L Anion Gap 16 (6-14) H Blood Urea Nitrogen 15 mg/dL (7-20) Creatinine 0.8 mg/dL (0.6-1.0) Estimated GFR (Cockcroft-Gault) 88.1 BUN/Creatinine Ratio 19 (6-20) Glucose Level 124 mg/dL (70-99) H Calcium Level 9.2 mg/dL (8.5-10.1) Total Bilirubin 0.9 mg/dL (0.2-1.0) Aspartate Amino Transferase (AST) 23 U/L (15-37) Alanine Aminotransferase (ALT) 29 U/L (14-59) Alkaline Phosphatase 90 U/L (46-116) Total Protein 8.3 g/dL (6.4-8.2) H Albumin 4.3 g/dL (3.4-5.0) Albumin/Globulin Ratio 1.1 (1.0-1.7) Lipase 62 U/L (73-393) L Urine Collection Type Unknown Urine Color Yellow Urine Clarity Clear Urine pH 8.5 Urine Specific [place] 1.015 Urine Protein 100 mg/dl (NEG-TRACE) Urine Glucose (UA) Neg mg/dL (NEG) Urine Ketones (Stick) 40 mg/dL (NEG) Urine Blood Neg (NEG) Urine Nitrite Neg (NEG) Urine Bilirubin Neg (NEG) Urine Urobilinogen Dipstick 0.2 mg/dL (0.2 mg/dL) Urine Leukocyte Esterase Neg (NEG) Urine RBC 3-5 /HPF (0-2) Urine WBC 5-10 /HPF (0-4) Urine Squamous Epithelial Cells Many /LPF Urine Bacteria Few /HPF (0-FEW) Urine Mucus Mod /LPF POC Urine HCG, Qualitative hcg negative (Negative) Vital Signs: Vital Signs Date Time Temp Pulse Resp B/P (MAP) Pulse Ox O2 Delivery O2 Flow Rate FiO2 08/11/21 10:01 86 20 134/90 (105) 98 Room Air Radiology/Procedures: Radiology/Procedures: PROCEDURE: CT ABD PELV W/ IV CONTRST ONLY CT STUDY OF THE ABDOMEN AND PELVIS WITH CONTRAST Clinical indications: Diffuse abdominal pain. Nausea/vomiting. History of cholecystectomy. TECHNIQUE: After IV infusion of 75 cc of Omnipaque 300, helical CT scanning of the abdomen and pelvis was performed. GI contrast was not administered. This may decrease the sensitivity to detect GI tract pathology. PQRS COMPLIANCE STATEMENT One or more of the following individualized dose reduction techniques were utilized for this study: 1. Automated exposure control 2. Adjustment of the mA and/or kV according to patient size 3. Use of iterative reconstruction technique COMPARISON: July 10, 2021. FINDINGS: The liver and spleen and pancreas are normal. The gallbladder is surgically absent. No dilatation of the extra hepatic biliary tree is seen. No adrenal mass is apparent. Both kidneys are normal without hydronephrosis or hydroureter or urinary tract stone. No focal aneurysmal dilatation of the abdominal aorta is seen. No enlarged abdominal or pelvic lymphadenopathy is seen. Urinary bladder wall is smooth. No dominant ovarian cyst or mass is apparent. No uterine mass is seen. There is diffuse wall thickening of the colon from the cecum down into the rectosigmoid region. No pericolonic inflammation is seen. No obstructive bowel pattern is seen. No lytic process is seen. No lung base infiltrate is seen. IMPRESSION: Unchanged diffuse colonic wall thickening extending into the rectum which may be seen with diffuse colitis. Terminal ileum is unremarkable. The appendix is normal. Electronically signed by: Sherman Gomes MD (08/11/2021 12:33 PM) Heart Score: C/O Chest Pain: No Course & Med Decision Making: Course & Med Decision Making Patient required a second round of antinausea medicine with improvement. Departure Departure: Impression: Primary Impression: Viral gastroenteritis Disposition: HOME / SELF CARE / HOMELESS Condition: IMPROVED Referrals: PCP,JENNIFER (PCP) Patient Instructions: Viral Gastroenteritis, [id number] Additional Instructions: You were seen in the emergency department for nausea and vomiting. You could have a viral illness which should resolve in the next few days to a week. Drink at least 6-8 glasses of water per day to help stay hydrated if you can tolerate drinking water. You may also supplement with gatorade. Please avoid alcohol while you are ill. You should return to the ED if you develop abdominal pain, fever > 100.3, black/bloody stools, black/bloody vomiting, cannot eat or drink without vomiting, or have any other new or concerning symptoms. Scripts Ondansetron Hcl (ZOFRAN) 4 Mg Tablet 1 TAB PO Q6HRS for nausea, #20 TAB Prov: ALICIA CHAMBERLAIN DO 08/11/21 Ondansetron Hcl (ZOFRAN) 4 Mg Tablet 1 TAB PO Q6HRS for NAUSEA, #20 TAB Prov: ALICIA CHAMBERLAIN DO 08/11/21 ALICIA CHAMBERLAIN DO Aug 11, 2021 09:51
[2021-08-11] MEDS: IV RINGERS SOLUTION,LACTATED 1,000 ML IV SCH (10:10)
[2021-08-11] MEDS: FAMOTIDINE 20 MG/2 ML VIAL IVP ONE (10:11)
[2021-08-11] MEDS: ONDANSETRON PF 4 MG/2 ML VIAL. IVP ONE (10:11)
[2021-08-11 10:31] LABS: CALCIUM 9.2 mg/dL (8.5-10.1); CREATININE 0.8 mg/dL (0.6-1.0); GFR 88.1; POTASSIUM 3.4 mmol/L (3.5-5.1)
[2021-08-11 10:40] LABS: ALBUMIN 4.3 g/dL (3.4-5.0); ALBUMIN/GLOBULIN RATIO 1.1 (1.0-1.7); BASO # 0.2 x10^3/uL (0.0-0.2); BASO % 2 % (0-3); EOS % 0 % (0-3); HEMATOCRIT 45.7 % (36.0-47.0); HEMOGLOBIN 15.4 g/dL (12.0-15.5); LYMPH % 13 % (24-48); MEAN CORPUSCULAR HEMOGLOBIN 32 pg (25-35); MEAN CORPUSCULAR HGB CONC 34 g/dL (31-37); MEAN CORPUSCULAR VOLUME 96 fL (79-100); MONO # 0.7 x10^3/uL (0.0-1.1); MONO % 5 % (0-9); NEUT # 12.2 x10^3uL (1.8-7.7); NEUT % 80 % (31-73); PLATELET COUNT 252 x10^3/uL (140-400); RED BLOOD COUNT 4.75 x10^6/uL (3.50-5.40); TOTAL BILIRUBIN 0.9 mg/dL (0.2-1.0); TOTAL PROTEIN 8.3 g/dL (6.4-8.2); WHITE BLOOD COUNT 15.2 x10^3/uL (4.0-11.0)
[2021-08-11 11:29] LABS: BILIRUBIN,URINE NEG (NEG); CLARITY,URINE CLEAR; COLOR,URINE YELLOW; GLUCOSE,URINE NEG (NEG); NITRITE,URINE NEG (NEG); UROBILINOGEN,URINE 0.2 mg/dL (0.2 mg/dL)
[2021-08-11 11:37] LABS: BACTERIA,URINE FEW /HPF (0-FEW); SQUAMOUS EPITHELIAL CELL,UR MANY /LPF
[2021-08-11] MEDS: IOHEXOL 300 MG/ML 75 ML VIAL. IV ONE (11:56)
[2021-08-11] MEDS: IV NORMAL SALINE 1,000ML 1,000 ML IV ONE (12:06)
[2021-08-11] MEDS: PROCHLORPERAZINE 10 MG/2 ML VIAL. IVP ONE (12:06)
[2021-08-11] MEDS: diphenhydrAMINE 50 MG/ML VIAL IVP ONE (12:07)
--- NOTE | 2021-08-11 12:36 | RAD ---
CT STUDY OF THE ABDOMEN AND PELVIS WITH CONTRAST Clinical indications: Diffuse abdominal pain. Nausea/vomiting. History of cholecystectomy. TECHNIQUE: After IV infusion of 75 cc of Omnipaque 300, helical CT scanning of the abdomen and pelvis was performed. GI contrast was not administered. This may decrease the sensitivity to detect GI trac t pathology. PQRS COMPLIANCE STATEMENT One or more of the following individualized dose reduction techniques were utilized for this study: 1. Automated exposure control 2. Adjustment of the mA and/or kV according to patient size 3. Use of iterative reconstruction technique COMPARISON: July 10, 2021. FINDINGS: The liver and spleen and pancreas are normal. The gallbladder is surgically absent. No dila tation of the extra hepatic biliary tree is seen. No adrenal mass is apparent. Both kidneys are kylah l without hydronephrosis or hydroureter or urinary tract stone. No focal aneurysmal dilatation of the abdominal aorta is seen. No enlarged abdominal or pelvic lymphadenopathy is seen. Urinary bladder wa ll is smooth. No dominant ovarian cyst or mass is apparent. No uterine mass is seen. There is diffuse wall thickening of the colon from the cecum down into the rectosigmoid region. No pericolonic inflam mation is seen. No obstructive bowel pattern is seen. No lytic process is seen. No lung base infiltra te is seen. IMPRESSION: Unchanged diffuse colonic wall thickening extending into the rectum which may be seen wit h diffuse colitis. Terminal ileum is unremarkable. The appendix is normal. Electronically signed by: Sherman Gomes MD (08/11/2021 12:33 PM) [id number]
[2021-08-11 12:39] VITALS: BP 133/87
[2021-08-11] MEDS ORDERED: ONDA4TAB7 PO ×2 (12:42→12:43)
[2021-08-11 14:29] LABS: % ATYL 4 % (0-0); % BANDS 5 % (0-9); % LYMPHS 11 % (24-48); % MONOS 7 % (0-10); % SEGS 73 % (35-66)
[2021-08-11 14:30] LABS: PLT ESTIMATE ADEQUATE (ADEQUATE)
[2021-08-11 14:31] LABS: PLATELET CLUMP PRESENT
== END 2021-08-11 13:17 | disposition home or self-care (01) ==
LOC: ER 09:28
DX: A08.4 Viral intestinal infection, unspecified (principal); Z90.49 Acquired absence of other specified parts of digestive tract
CPT/HCPCS: 36415; 74177; 80053; 81001; 81025; 83690; 85007; 85025; 87086; 96361; 96374; 96375; 99285; J0780; J1200; J2405; J3490; J7030; J7120; Q9967

== ENCOUNTER 2021-12-13 05:42 | Emergency (ER) | payer SELFPAY ==
[~2021-12-13] VITALS: Ht 160 cm; Wt 73.0 kg
--- NOTE | 2021-12-13 06:08 | PHYS DOC ---
Past History Past Medical History: Other Additional Past Medical Histor: gastritis (DARVIN ROGERS MD) Past Surgical History: Cholecystectomy (DARVIN ROGERS MD) Smoking: Non-smoker Alcohol Use: Occasionally Drug Use: None (DARVIN ROGERS MD) General Adult EDM: Chief Complaint: NAUSEA/VOMITING/DIARRHEA HPI: HPI: Patient is a 26 year old female who presents with abdomen pain. See Dr. Santillan chart for details. (DARVIN ROGERS MD) Review of Systems: Review of Systems: GI: Complaints abdominal pain- See Dr. Santillan chart for details of visit. (DARVIN ROGERS MD) Allergies: Allergies: Allergies Coded Allergies Type Severity Reaction Last Updated Verified No Known Drug Allergies 07/10/21 No (DARVIN ROGERS MD) Physical Exam: PE: See Dr. Santillan chart for details of visit. (DARVIN ROGERS MD) Current Patient Data: Vital Signs: Vital Signs Date Time Temp Pulse Resp B/P (MAP) Pulse Ox O2 Delivery O2 Flow Rate FiO2 12/13/21 05:52 97.7 89 18 145/88 (107) 98 Room Air (DARVIN ROGERS MD) EKG: EKG: [] (DARVIN ROGERS MD) Radiology/Procedures: Radiology/Procedures: [] (DARVIN ROGERS MD) Heart Score: C/O Chest Pain: N/A Risk Factors: Risk Factors: DM, Current or recent (<one month) smoker, HTN, HLP, family histo ry of CAD, obesity. Risk Scores: Score 0 - 3: 2.5% MACE over next 6 weeks - Discharge Home Score 4 - 6: 20.3% MACE over next 6 weeks - Admit for Clinical Observation Score 7 - 10: 72.7% MACE over next 6 weeks - Early Invasive Strategies (DARVIN ROGERS MD) C/O Chest Pain: No (DIMA SANTILLAN DO) Course & Med Decision Making: Course & Med Decision Making Pertinent Labs and Imaging studies reviewed. (See chart for details) Endorsed to Dr Santillan at shift change. Impression: 1. Abdomen pain [] (DARVIN ROGERS MD) Course & Med Decision Making I assumed care of patient after signout from off going physician. I personally saw patient and repeated aspects of history and physical exam More dynamically stable individual with ongoing nonbloody nonbilious emesis and looser stools than usual in ER setting. Admits to drinking several alcoholic shots but ate questionable pizza yesterday evening with symptoms starting approximately 7 hours after last ingestion Work-up today unremarkable. Symptoms improved after provided ER intervention that included IV fluid rehydration, antiemetics and pain medication. Discussed likely diagnosis of viral gastritis versus other self-limiting GI illness, less likely life-threatening intra-abdominal abnormality Decision to discharge home with continued antiemetic use and supportive care practices with close PCP follow-up (DIMA SANTILLAN DO) Dragon Disclaimer: Dragon Disclaimer: This electronic medical record was generated, in whole or in part, using a voice recognition dictation system. (DARVIN ROGERS MD) Departure Departure: Impression: Primary Impression: Nausea, vomiting, and diarrhea Disposition: HOME / SELF CARE / HOMELESS Condition: IMPROVED Referrals: PCP,JENNIFER (PCP) Patient Instructions: Nausea and Vomiting Additional Instructions: You were seen for nausea and vomiting. You most likely have a viral illness which should resolve in the next few days to a week with etiology being food and drink choices from evening prior to arrival. You should return to the ED if you develop abdominal pain, fever > 100.3, black/bloody stools, black/bloody vomiting, cannot keep water down, or any other new or concerning symptoms. Scripts Metoclopramide Hcl (REGLAN) 5 Mg Tablet 1 TAB PO TID for nausea for 10 Days, #30 TAB 0 Refills 1 hour prior to procedure Prov: DIMA SANTILLAN DO 12/13/21 Dragon Disclaimer This chart was dictated in whole or in part using Voice Recognition software in a busy, high-work load, and often noisy Emergency Department environment. It may contain unintended and wholly unrecognized errors or omissions. (DARVIN ROGERS MD) DARVIN ROGERS MD Dec 13, 2021 06:08 DIMA SANTILLAN DO Dec 13, 2021 06:24
[2021-12-13] MEDS ORDERED: METOCLOPRAMIDE HCL 10 MG/2 ML VIAL. IVP ONE (06:30)
[2021-12-13] MEDS ORDERED: IV NORMAL SALINE 1,000ML 1,000 ML IV ONE (06:30)
[2021-12-13] MEDS ORDERED: IV NORMAL SALINE 1,000ML 1,000 ML IV SCH (06:30)
[2021-12-13 06:57] LABS: BASO # 0.1 x10^3/uL (0.0-0.2); BASO % 1 % (0-3); EOS % 0 % (0-3); HEMATOCRIT 44.3 % (36.0-47.0); LYMPH # 1.9 x10^3/uL (1.0-4.8); LYMPH % 13 % (24-48); MEAN CORPUSCULAR HEMOGLOBIN 32 pg (25-35); MEAN CORPUSCULAR HGB CONC 34 g/dL (31-37); MEAN CORPUSCULAR VOLUME 95 fL (79-100); MONO % 7 % (0-9); NEUT # 11.6 x10^3uL (1.8-7.7); NEUT % 79 % (31-73); PLATELET COUNT 299 x10^3/uL (140-400); RED BLOOD COUNT 4.69 x10^6/uL (3.50-5.40); RED CELL DISTRIBUTION WIDTH 13.5 % (11.5-14.5); WHITE BLOOD COUNT 14.7 x10^3/uL (4.0-11.0)
[2021-12-13 06:59] LABS: CALCIUM 10.2 mg/dL (8.5-10.1); GFR 68.1; POTASSIUM 3.5 mmol/L (3.5-5.1)
[2021-12-13 07:05] LABS: ALBUMIN/GLOBULIN RATIO 1.2 (1.0-1.7); TOTAL BILIRUBIN 0.9 mg/dL (0.2-1.0); TOTAL PROTEIN 7.3 g/dL (6.4-8.2)
[2021-12-13] MEDS ORDERED: METO5TAB55 PO (07:24)
[2021-12-13 07:25] VITALS: BP 140/90
== END 2021-12-13 07:29 | disposition home or self-care (01) ==
LOC: ER 05:42
DX: R11.2 Nausea with vomiting, unspecified (principal); R19.7 Diarrhea, unspecified; R10.9 Unspecified abdominal pain; Z90.49 Acquired absence of other specified parts of digestive tract
CPT/HCPCS: 36415; 80053; 83690; 85025; 96361; 96374; 96375; 99284; J2765; J3010; J7030

== ENCOUNTER 2022-01-31 06:01 | Emergency (ER) | payer SELFPAY ==
[~2022-01-31] VITALS: Ht 160 cm; Wt 76.0 kg
[2022-01-31] MEDS ORDERED: ONDANSETRON PF 4 MG/2 ML VIAL. ONE (06:34)
--- NOTE | 2022-01-31 06:42 | PHYS DOC ---
Past History Past Medical History: Other Additional Past Medical Histor: gastritis Past Surgical History: Cholecystectomy Smoking: Non-smoker Alcohol Use: None Drug Use: None General Adult EDM: Chief Complaint: NAUSEA/VOMITING/DIARRHEA HPI: HPI: Patient is a 26-year-old female coming in for nausea and vomiting. Patient states she has been having vomiting for the past 5 days, denies any diarrhea. Last bowel movement this morning it was "normal". Patient has a history of multiple emergency department visits for vomiting. Patient states she smokes marijuana occasionally, at least once a week. Had some Zofran at home, but ran out and took last dose last night. Denies any fever or cough. Epigastric abdominal pain Review of Systems: Review of Systems: All other systems within normal limits except for as noted in the HPI Current Medications: Current Meds: Current Medications Medications (Trade) Dose Ordered Sig/Luiza Start Time Stop Time Status Last Admin Dose Admin Ondansetron HCl (Zofran) 4 mg STK-MED ONCE 01/31/22 06:34 01/31/22 06:35 DC Sodium Chloride 1,000 ml @ 1,000 mls/hr 1X ONCE 01/31/22 07:00 01/31/22 07:59 Allergies: Allergies: Allergies Coded Allergies Type Severity Reaction Last Updated Verified No Known Drug Allergies 07/10/21 No Physical Exam: PE: Constitutional: Well developed, well nourished, no acute distress, non-toxic appearance. [] HENT: Normocephalic, atraumatic, bilateral external ears normal, nose normal. [] Eyes: PERRLA, conjunctiva normal, no discharge. [] Neck: No rigidity, supple, no stridor. [] Cardiovascular: Regular rate and rhythm, brisk cap refill [] Lungs & Thorax: Non labored symmetric respirations, no tachypnea or respiratory distress [] Abdomen: Soft, nondistended, epigastric tenderness. Skin: Warm, dry, no erythema, no rash. [] Back: Unremarkable Extremities: No deformities, range of motion grossly intact, no lower extremity edema [] Neurologic: Alert and oriented X 3, no focal deficits noted. [] Psychologic: Affect normal, judgement normal, mood normal. [] Current Patient Data: Labs: Laboratory Tests Test 01/31/22 05:34 POC Urine HCG, Qualitative hcg negative (Negative) Vital Signs: Vital Signs Date Time Temp Pulse Resp B/P (MAP) Pulse Ox O2 Delivery O2 Flow Rate FiO2 01/31/22 06:20 97.9 83 18 130/91 (104) 96 Room Air EKG: EKG: [] Radiology/Procedures: Radiology/Procedures: [] Heart Score: C/O Chest Pain: No Risk Factors: Risk Factors: DM, Current or recent (<one month) smoker, HTN, HLP, family history of CAD, obesity. Risk Scores: Score 0 - 3: 2.5% MACE over next 6 weeks - Discharge Home Score 4 - 6: 20.3% MACE over next 6 weeks - Admit for Clinical Observation Score 7 - 10: 72.7% MACE over next 6 weeks - Early Invasive Strategies Course & Med Decision Making: Course & Med Decision Making Pertinent Labs and Imaging studies reviewed. (See chart for details) As unremarkable, patient improved and tolerating p.o. [] Dragon Disclaimer: Dragon Disclaimer: This electronic medical record was generated, in whole or in part, using a voice recognition dictation system. Departure Departure: Impression: Primary Impression: Nausea & vomiting Disposition: 01 HOME / SELF CARE / HOMELESS Condition: IMPROVED Referrals: WAYNE SOMMERS MD Patient Instructions: Nausea and Vomiting Scripts Ondansetron (ONDANSETRON ODT) 8 Mg Tab.rapdis 8 MG PO PRN Q8HRS PRN for VOMITING, #10 TAB Prov: ANU FISH MD 01/31/22 ANU FISH MD Jan 31, 2022 06:42
[2022-01-31] MEDS ORDERED: ONDANSETRON PF 4 MG/2 ML VIAL. IVP ONE (07:00)
[2022-01-31] MEDS ORDERED: IV NORMAL SALINE 1,000ML 1,000 ML IV ONE (07:00)
[2022-01-31] MEDS ORDERED: diphenhydrAMINE 50 MG/ML VIAL IVP ONE (07:15)
[2022-01-31] MEDS ORDERED: HALOPERIDOL LACT 5 MG/ML VIAL. IVP ONE (07:15)
[2022-01-31 07:33] LABS: BACTERIA,URINE 0 /HPF (0-FEW); CLARITY,URINE CLEAR; COLOR,URINE YELLOW; GLUCOSE,URINE NEG (NEG); NITRITE,URINE NEG (NEG); SQUAMOUS EPITHELIAL CELL,UR MANY /LPF; UROBILINOGEN,URINE 0.2 mg/dL (0.2 mg/dL)
[2022-01-31 07:39] LABS: BASO # 0.1 x10^3/uL (0.0-0.2); BASO % 1 % (0-3); EOS # 0.1 x10^3/uL (0.0-0.7); EOS % 1 % (0-3); HEMATOCRIT 47.1 % (36.0-47.0); LYMPH # 2.1 x10^3/uL (1.0-4.8); LYMPH % 22 % (24-48); MEAN CORPUSCULAR HEMOGLOBIN 33 pg (25-35); MEAN CORPUSCULAR HGB CONC 34 g/dL (31-37); MEAN CORPUSCULAR VOLUME 97 fL (79-100); MONO # 0.8 x10^3/uL (0.0-1.1); MONO % 8 % (0-9); NEUT # 6.4 x10^3uL (1.8-7.7); NEUT % 68 % (31-73); PLATELET COUNT 299 x10^3/uL (140-400); RED BLOOD COUNT 4.88 x10^6/uL (3.50-5.40); WHITE BLOOD COUNT 9.4 x10^3/uL (4.0-11.0)
[2022-01-31 07:50] LABS: CALCIUM 9.2 mg/dL (8.5-10.1); CREATININE 1.2 mg/dL (0.6-1.0); GFR 55.2; POTASSIUM 3.4 mmol/L (3.5-5.1)
[2022-01-31 07:57] LABS: ALBUMIN 4.3 g/dL (3.4-5.0); ALBUMIN/GLOBULIN RATIO 1.2 (1.0-1.7); TOTAL BILIRUBIN 1.4 mg/dL (0.2-1.0); TOTAL PROTEIN 7.8 g/dL (6.4-8.2)
[2022-01-31 08:01] LABS: PHOSPHORUS 1.7 mg/dL (2.6-4.7)
[2022-01-31 08:08] VITALS: BP 146/87
[2022-01-31] MEDS ORDERED: ONDA8TAB15 PO (08:37)
[2022-02-01] MEDS ORDERED: PROM25SU33 RC (09:21)
== END 2022-01-31 08:50 | disposition home or self-care (01) ==
LOC: ER 06:01
DX: R11.2 Nausea with vomiting, unspecified (principal); R10.13 Epigastric pain; Z90.49 Acquired absence of other specified parts of digestive tract
CPT/HCPCS: 36415; 80053; 81001; 81025; 83690; 83735; 84100; 85025; 87086; 96361; 96374; 96375; 99284; J1200; J1630; J2405; J7030

== ENCOUNTER 2022-02-01 07:19 | Emergency (ER) | payer SELFPAY ==
[~2022-02-01] VITALS: Ht 160 cm; Wt 76.0 kg
[~2022-02-01 07:19] MED LIST changes: +ONDA8TAB15 PO
[2022-02-01] MEDS ORDERED: FAMOTIDINE 20 MG/2 ML VIAL IVP ONE (08:00)
[2022-02-01] MEDS ORDERED: METOCLOPRAMIDE HCL 10 MG/2 ML VIAL. IVP ONE (08:00)
[2022-02-01] MEDS ORDERED: diphenhydrAMINE 50 MG/ML VIAL IVP ONE (08:00)
[2022-02-01] MEDS ORDERED: IOHEXOL 300 MG/ML 75 ML VIAL. IV ONE (08:00)
[2022-02-01] MEDS ORDERED: IV NORMAL SALINE 1,000ML 1,000 ML IV ONE (08:00)
--- NOTE | 2022-02-01 08:20 | PHYS DOC ---
Past History Past Medical History: Other Additional Past Medical Histor: gastritis Past Surgical History: Cholecystectomy Smoking: Non-smoker Alcohol Use: None Drug Use: None, Marijuana General Adult EDM: Chief Complaint: NAUSEA/VOMITING/DIARRHEA HPI: HPI: Patient is a 26 year old female who presents with nausea and vomiting which has been ongoing for last 6 days. She presented yesterday 01/31 to the ED with the same complaint and was discharged on Zofran. She reports that she attempted to take the Zofran ODT once but not liking the taste it left in her mouth so she drank water and vomited. Patient reports vomiting 20 times per day since January 26. She reports that the vomit consists of dark bile with no blood. She denies diarrhea and constipation. Patient reports sharp epigastric pains and diffuse pain throughout the entire abdomen. Patient reports that she occasionally smokes marijuana but stopped 1 week ago because the marijuana was causing nausea and vomiting. Patient reports that nausea and vomiting is completely relieved with hot shower or hot bath but begins again when she gets out of the water. Patient reports that she has no other complaints at this time. Review of Systems: Review of Systems: Constitutional: Denies fever or chills Eyes: Denies redness or eye pain HENT: Denies nasal congestion or sore throat Respiratory: Denies cough or shortness of breath Cardiovascular: Denies chest pain or palpitations GI: Reports abdominal pain, nausea, and vomiting : Denies dysuria or hematuria Musculoskeletal: Denies back pain or joint pain Integument: Denies rash or skin lesions Neurologic: Denies headache, focal weakness or sensory changes Complete systems were reviewed and found to be within normal limits, except as documented in this note. Current Medications: Current Meds: Current Medications Medications (Trade) Dose Ordered Sig/Luiza Start Time Stop Time Status Last Admin Dose Admin Diphenhydramine HCl (Benadryl) 25 mg 1X ONCE 02/01/22 08:00 02/01/22 08:01 DC Famotidine (Pepcid Vial) 20 mg 1X ONCE 02/01/22 08:00 02/01/22 08:01 DC Iohexol (Omnipaque 300 Mg/ml) 75 ml 1X ONCE 02/01/22 08:00 02/01/22 08:01 DC Metoclopramide HCl (Reglan Vial) 10 mg 1X ONCE 02/01/22 08:00 02/01/22 08:01 DC Sodium Chloride 1,000 ml @ 1,000 mls/hr 1X ONCE 02/01/22 08:00 02/01/22 08:59 Allergies: Allergies: Allergies Coded Allergies Type Severity Reaction Last Updated Verified No Known Drug Allergies 07/10/21 No Physical Exam: PE: Constitutional: Well developed, well nourished, no acute distress, non-toxic appearance HENT: Normocephalic, atraumatic Eyes: Conjunctiva normal, no discharge Neck: Normal range of motion, no tenderness, supple Lungs & Thorax: No respiratory distress, equal chest rise and fall Abdomen: Soft, moderately tender in epigastrium, mildly tender in all 4 quadrants Skin: Warm, dry, no erythema, no rash Back: No tenderness, no CVA tenderness Extremities: No tenderness, ROM intact, no edema Neurologic: Alert and oriented X 3, no focal deficits noted Psychologic: Affect normal, judgment normal Current Patient Data: Vital Signs: Vital Signs Date Time Temp Pulse Resp B/P (MAP) Pulse Ox O2 Delivery O2 Flow Rate FiO2 02/01/22 07:40 97.9 100 20 123/73 (90) 99 Room Air EKG: EKG: [] Radiology/Procedures: Radiology/Procedures: PROCEDURE: CT ABD PELV W/ IV CONTRST ONLY CT ABDOMEN+PELVIS W History: Intractable nausea and vomiting. Comparison: 08/11/2021 Technique: CT of the abdomen and pelvis with intravenous contrast. Findings: Since the lung bases are clear. The liver is unremarkable. Surgical clips at the gallbladder fossa status post cholecystectomy. The common bile duct measures 8 mm diameter. The pancreas, spleen and adrenal glands are unremarkable. The kidneys are within normal limits. The bladder is decompressed. The uterus and adnexa are normal. No pelvic free fluid. Unremarkable stomach and small bowel. There is mural fatty infiltration of the colon similar to comparisons. No focal inflammatory changes. The vasculature is unremarkable. No adenopathy. Soft tissues are within normal limits. No acute osseous abnormalities. Impression: 1. No acute inflammatory changes in the abdomen and pelvis. 2. Mural fatty infiltration of the colon is nonspecific finding, similar to com parisons, can be seen in inflammatory bowel disease. ------ Exposure: One or more of the following individualized dose reduction techniques were utilized for this examination: 1. Automated exposure control 2. Adjustment of the mA and/or kV according to patient size 3. Use of iterative reconstruction technique. Electronically signed by: Tera Dean MD (02/01/2022 8:38 AM) [id number] Heart Score: C/O Chest Pain: N/A Course & Med Decision Making: Course & Med Decision Making 26-year-old female presenting with nausea and vomiting. She was seen yesterday in the [facility] emergency department for the same complaint. [facility] review showing mild dehydration from yesterday's labs. No imaging was performed. Symptomatic treatment provided. Patient reporting prescription medication not helping. Patient has right upper quadrant and epigastric pain with a history of cholecystectomy, abdominal pelvic CT was obtained and showed no aggravating factors and mural fatty infiltration of the colon. Labs obtained and posted to chart showing signs of mild dehydration. IV fluids started. Patient stable for discharge with outpatient follow-up with PCP/GI. GI referral provided. Discussed findings and plan with patient, who acknowledges understanding and agreement. Kay Disclaimer: Kay Disclaimer: This electronic medical record was generated, in whole or in part, using a voice recognition dictation system. Departure Departure: Impression: Primary Impression: Intractable nausea and vomiting Disposition: HOME / SELF CARE / HOMELESS Condition: STABLE Referrals: PCP,JENNIFER (PCP) WAYNE SOMMERS MD Patient Instructions: Clear Liquid Diet, [id number], Nausea and Vomiting, [id number] Scripts Promethazine Hcl (PROMETHAZINE HCL) 25 Mg Supp.rect 1 SUPP RC Q8HRS PRN for NAUSEA, #12 SUPP 0 Refills Prov: JA IZQUIERDO DO 02/01/22 JA IZQUIERDO DO Feb 01, 2022 08:19
--- NOTE | 2022-02-01 08:40 | RAD ---
CT ABDOMEN+PELVIS W History: Intractable nausea and vomiting. Comparison: 08/11/2021 Technique: CT of the abdomen and pelvis with intravenous contrast. Findings: Since the lung bases are clear. The liver is unremarkable. Surgical clips at the gallbladder fossa st atus post cholecystectomy. The common bile duct measures 8 mm diameter. The pancreas, spleen and adre nal glands are unremarkable. The kidneys are within normal limits. The bladder is decompressed. The uterus and adnexa are normal. No pelvic free fluid. Unremarkable stomach and small bowel. There is mural fatty infiltration of the colon similar to chiquis risons. No focal inflammatory changes. The vasculature is unremarkable. No adenopathy. Soft tissues are within normal limits. No acute osseo us abnormalities. Impression: 1. No acute inflammatory changes in the abdomen and pelvis. 2. Mural fatty infiltration of the colon is nonspecific finding, similar to comparisons, can be seen in inflammatory bowel disease. ------ Exposure: One or more of the following individualized dose reduction techniques were utilized for thi s examination: 1. Automated exposure control 2. Adjustment of the mA and/or kV according to patient size 3. Use of iterative reconstruction technique. Electronically signed by: Tera Dean MD (02/01/2022 8:38 AM) [id number]
[2022-02-01 08:41] LABS: BASO # 0.1 x10^3/uL (0.0-0.2); BASO % 1 % (0-3); EOS % 0 % (0-3); HEMATOCRIT 45.5 % (36.0-47.0); HEMOGLOBIN 15.3 g/dL (12.0-15.5); LYMPH # 2.2 x10^3/uL (1.0-4.8); LYMPH % 19 % (24-48); MEAN CORPUSCULAR HEMOGLOBIN 33 pg (25-35); MEAN CORPUSCULAR HGB CONC 34 g/dL (31-37); MEAN CORPUSCULAR VOLUME 96 fL (79-100); MONO # 0.9 x10^3/uL (0.0-1.1); MONO % 8 % (0-9); NEUT # 8.6 x10^3uL (1.8-7.7); NEUT % 73 % (31-73); PLATELET COUNT 304 x10^3/uL (140-400); RED BLOOD COUNT 4.72 x10^6/uL (3.50-5.40); RED CELL DISTRIBUTION WIDTH 13.2 % (11.5-14.5); WHITE BLOOD COUNT 11.9 x10^3/uL (4.0-11.0)
[2022-02-01 08:49] LABS: BARBITURATES NEG (NEG); BENZODIAZEPINES NEG (NEG); CANNABINOIDS POS (NEG); COCAINE NEG (NEG); CREATININE 1.1 mg/dL (0.6-1.0); METHADONE NEG (NEG); OPIATES NEG (NEG); PHENCYCLIDINE NEG (NEG); POTASSIUM 3.4 mmol/L (3.5-5.1)
[2022-02-01 08:51] LABS: AMPHETAMINE/METHAMPHETAMINE NEG (NEG)
[2022-02-01 08:53] LABS: ALBUMIN 4.4 g/dL (3.4-5.0); ALBUMIN/GLOBULIN RATIO 1.2 (1.0-1.7); MAGNESIUM 2.1 mg/dL (1.8-2.4); TOTAL BILIRUBIN 1.8 mg/dL (0.2-1.0)
[2022-02-01 08:59] LABS: CLARITY,URINE CLOUDY; COLOR,URINE YELLOW; GLUCOSE,URINE NEG (NEG); NITRITE,URINE NEG (NEG)
[2022-02-01 09:00] LABS: BACTERIA,URINE FEW /HPF (0-FEW); SQUAMOUS EPITHELIAL CELL,UR MANY /LPF
[2022-02-01] MEDS ORDERED: PROM25SU33 RC (09:21)
[2022-02-01 09:22] VITALS: BP 138/96
== END 2022-02-01 09:23 | disposition home or self-care (01) ==
LOC: ER 07:19
DX: R11.2 Nausea with vomiting, unspecified (principal); R10.84 Generalized abdominal pain; R10.13 Epigastric pain; Z90.49 Acquired absence of other specified parts of digestive tract; F12.10 Cannabis abuse, uncomplicated
CPT/HCPCS: 36415; 74177; 80053; 80307; 81001; 82550; 83690; 83735; 85025; 96361; 96374; 96375; 99285; J1200; J2765; J3490; J7030; Q9967

== ENCOUNTER 2022-02-04 04:57 | Emergency (ER) | payer SELFPAY ==
[~2022-02-04] VITALS: Ht 160 cm; Wt 77.2 kg
[~2022-02-04 04:57] MED LIST changes: +PROM25SU33 RC
--- NOTE | 2022-02-04 05:02 | PHYS DOC ---
Past History Past Medical History: Other Additional Past Medical Histor: gastritis (DARVIN HERNANDEZ MD) Past Surgical History: Cholecystectomy (DARVIN HERNANDEZ MD) Smoking: Non-smoker Alcohol Use: None Drug Use: None, Marijuana (DARVIN HERNANDEZ MD) General Adult HPI: HPI: ".. I ve been sick the last 10 days.. nausea, vomiting.. and now diarrhea.. .. I was here on the .. I used the compazine suppository... But I think it came out with the diarrhea... I just feel miserable... I have not been able to eat anything for 3 days..".. " Sometimes gotta to be wrong".. Patient is a 26 year old female who presents with above hx has complaints of nausea, vomiting, diarrhea and abdomen pain. Patient localizes her abdomen pain somewhat diffusely. But some localization and the epigastric area. Patient states she has been ill the last 10 days. No history of bad food intake. No history of travel. No history of severe ill contacts. Patient has had previous history of gallstones and is status post cholecystectomy.. Patient denies any recent illicit drug use. Patient states she normally smokes marijuana... But has not smoked any for over a week. Patient denies any history of trauma. Patient is up-to-date with [facility]. Has had flu vaccination. No history of colitis with her or family members. No one else in family unit are ill. (DARVIN HERNANDEZ MD) Review of Systems: Review of Systems: Constitutional: Denies fever or chills Eyes: Denies change in visual acuity HENT: Denies nasal congestion or sore throat Respiratory: Denies cough or shortness of breath Cardiovascular: Denies chest pain or edema GI: Complains of abdominal pain, nausea, vomiting, and diarrhea : Denies dysuria Musculoskeletal: Denies back pain or joint pain Integument: Denies rash Neurologic: Denies headache, focal weakness or sensory changes Endocrine: Denies polyuria or polydipsia Lymphatic: Denies swollen glands Psychiatric: Denies depression or anxiety (DARVIN HERNANDEZ MD) Family History: Family History: Noncontributory to presentation (DARVIN HERNANDEZ MD) Current Medications: Current Meds: See nursing for home meds (DARVIN HERNANDEZ MD) Allergies: Allergies: Allergies Coded Allergies Type Severity Reaction Last Updated Verified No Known Drug Allergies 07/10/21 No (DARVIN HERNANDEZ MD) Physical Exam: PE: Constitutional: In acute distress, non-toxic appearance. [] HENT: Normocephalic, atraumatic, bilateral external ears normal, oropharynx dry,, no oral exudates, nose normal. [] Eyes: PERRLA, EOMI, conjunctiva normal, no discharge. [] Neck: Normal range of motion, no tenderness, supple, no stridor. [] Cardiovascular: Tachycardia heart rate regular rhythm, no murmur [] Lungs & Thorax: Bilateral breath sounds equal at apex with few scattered wheezes on auscultation [] Abdomen: Bowel sounds hyperactive, soft, generalized tenderness, no masses, no pulsatile masses. Rebound to epigastric area. Old surgery scar. Obese. Umbilicus jewelry. Skin: Warm, dry, no erythema, no rash. [] Back: No tenderness, no CVA tenderness. [] Extremities: No tenderness, no cyanosis, no clubbing, ROM intact, no edema. No cording. No true psoas sign. Neurologic: Alert and oriented X 3, normal motor function, normal sensory function, no focal deficits noted. [] Psychologic: Affect anxious, tearful,, judgement normal, mood depressed. (DARVIN HERNANDEZ MD) EKG: EKG: My interpretation of EKG shows a sinus rhythm at 93 bpm. No acute morphology. Time of EKG is 0537 hrs. [] (DARVIN HERNANDEZ MD) Radiology/Procedures: Radiology/Procedures: [] (DARVIN HERNANDEZ MD) Radiology/Procedures: IMAGING REPORT Signed PATIENT: ROBIN VILLARREAL ACCOUNT: [id number] : 1995 LOCATION: ER AGE: 26 SEX: F EXAM STATUS: REG ER ORD. PHYSICIAN: DARVIN HERNANDEZ MD REASON: OMNI 300,75ML IV.OMNI 240,30ML PO.ABD PAIN,NAUSEA PROCEDURE: CT ABD PELV W/ORAL&IV CONTRAST INDICATION: Reason: OMNI 300,75ML IV.OMNI 240,30ML PO.ABD PAIN,NAUSEA / Spl. Instructions: HX CHOLECYSTECTOMY / History: COMPARISON: February 01, 2022 TECHNIQUE: Axial CT images were obtained through the abdomen and pelvis with intravenous contrast. One or more of the following individualized dose reduction techniques were utilized for this examination: 1. Automated exposure control; 2. Adjustment of the mA and/or kV according to patient size; 3. Use of iterative reconstruction technique. FINDINGS: Small hiatal hernia. Vascular: No abdominal aortic aneurysm. Hepatobiliary: Postcholecystectomy changes. No liver mass is seen. Mild prominence of bile ducts which is commonly seen postoperatively. Pancreas: No peripancreatic edema. Spleen: Spleen unremarkable. Renal/Bladder: No hydronephrosis. Urinary bladder has minimal urine within it with prominence of the wall. Gastrointestinal: No periappendiceal inflammatory changes. There is again some fatty infiltration of the wall of the large bowel. IMPRESSION: * No evidence of bowel obstruction or appendicitis. * Urinary bladder is only partially distended with some prominence of the wall seen. This is similar to prior therefore may be the patient's baseline appearance. * There is a couple of disc protrusions within the lumbar spine most prominent at L4-5 where there is associated moderate central canal stenosis. Would correlate with symptoms. Electronically signed by: Librado Lopes MD (02/04/2022 8:01 AM) [id number] DICTATED AND SIGNED BY: LIBRADO LOPES MD DATE: 02/04/22 0748 CC: COBY GALLAGHER DO; DARVIN HERNANDEZ MD; PCP,NO ~ (COBY GALLAGHER DO) Heart Score: C/O Chest Pain: N/A Risk Factors: Risk Factors: DM, Current or recent (<one month) smoker, HTN, HLP, family history of CAD, obesity. Risk Scores: Score 0 - 3: 2.5% MACE over next 6 weeks - Discharge Home Score 4 - 6: 20.3% MACE over next 6 weeks - Admit for Clinical Observation Score 7 - 10: 72.7% MACE over next 6 weeks - Early Invasive Strategies (DARVIN HERNANDEZ MD) C/O Chest Pain: No (COBY GALLAGHER DO) Course & Med Decision Making: Course & Med Decision Making Pertinent Labs and Imaging studies reviewed. (See chart for details) Pt. endorsed to Dr. Gallagher at shift change. CT pending. Labs pending. Impression: 1. Nausea, Vomiting, Diarrhea, -gastroenteritis 2. Abdomen pain 3. Gastritis 4. Mild Dehydration 5. Elevated Creat. 1.1 6. Leukocytosis 11.1 7. Drug Screen + for Marijuana [] (DARVIN HERNANDEZ MD) Course & Med Decision Making This patient was initially seen by Dr. Hernandez. Please see his note for H&P and HPI. I assumed care at [address] of the abdomen and pelvis is pending at the time. He had ordered oral and IV contrast. The patient vomited multiple times and could not tolerate oral contrast to completion. I ordered IV Zofran and IV Haldol. She is markedly improved after Haldol. She is no longer experiencing any pain or nausea symptoms. She is able to drink fluids without any difficulty. She has a history of marijuana use, positive THC on UDS, she reports that she has not smoked marijuana in about a week. I recommend cessation completely, because this may be contributing to her recurrent gastritis issues. She does have a GI physician that she is seen previously, she has previously undergone endoscopy. She has multiple antiemetic medications at home, including Zofran and Compazine suppositories. She does not need refills of any of these medications. She has a nonsurgical abdominal exam. She feels much better, she wishes to go home. I have discussed all of the findings, differential diagnosis and plan of care with her. I recommend she contact her PCP and GI doctor for follow-up. Dietary instructions were provided. Strict return precautions are given. She is discharged in stable and improved conditi on. (COBY GALLAGHER DO) Jeovannyon Disclaimer: Kay Disclaimer: This electronic medical record was generated, in whole or in part, using a voice recognition dictation system. (DARVIN HERNANDEZ MD) Departure Departure: Impression: Primary Impression: Nausea and vomiting Qualified Codes: R11.2 - Nausea with vomiting, unspecified Additional Impressions: Upper abdominal pain History of gastritis History of marijuana use Disposition: HOME / SELF CARE / HOMELESS Condition: STABLE Referrals: PCP,NO (PCP) Patient Instructions: Gastritis, Adult, Nausea and Vomiting Additional Instructions: You may continue taking your prescription antinausea medicine at home. Eat a bland diet, drink plenty of clear fluids. I would stick with a clear fluid diet today, advance as tolerated tomorrow. Avoid spicy, salty, greasy or fried foods. Avoid use of marijuana. Return to the ER immediately for uncontrolled vomiting, dehydration, vomiting blood, more severe abdominal pain, temperature 100.4 or higher, severe chest pain, shortness of breath or other concerns. Contact your primary care doctor and GI physician for follow-up. Dragon Disclaimer This chart was dictated in whole or in part using Voice Recognition software in a busy, high-work load, and often noisy Emergency Department environment. It may contain unintended and wholly unrecognized errors or omissions. (DARVIN HERNANDEZ MD) Dragon Disclaimer This chart was dictated in whole or in part using Voice Recognition software in a busy, high-work load, and often noisy Emergency Department environment. It may contain unintended and wholly unrecognized errors or omissions. (DARVIN HERNANDEZ MD) DARVIN HERNANDEZ MD Feb 04, 2022 05:02 COBY GALLAGHER DO Feb 04, 2022 08:09
[2022-02-04] MEDS ORDERED: diphenhydrAMINE 50 MG/ML VIAL IVP ONE (05:15)
[2022-02-04] MEDS ORDERED: KETOROLAC 30 MG/ML VIAL. IVP ONE (05:15)
[2022-02-04] MEDS ORDERED: ONDANSETRON PF 4 MG/2 ML VIAL. IVP ONE ×2 (05:15→06:45)
[2022-02-04] MEDS ORDERED: FAMOTIDINE 20 MG/2 ML VIAL IVP ONE (05:15)
[2022-02-04] MEDS ORDERED: IV RINGERS SOLUTION,LACTATED 1,000 ML IV SCH (05:15)
[2022-02-04] MEDS ORDERED: PROCHLORPERAZINE 10 MG/2 ML VIAL. IV ONE (05:30)
[2022-02-04 05:43] LABS: BASO # 0.1 x10^3/uL (0.0-0.2); BASO % 1 % (0-3); EOS # 0.1 x10^3/uL (0.0-0.7); EOS % 1 % (0-3); HEMATOCRIT 43.7 % (36.0-47.0); HEMOGLOBIN 14.5 g/dL (12.0-15.5); LYMPH # 2.4 x10^3/uL (1.0-4.8); LYMPH % 22 % (24-48); MEAN CORPUSCULAR HEMOGLOBIN 32 pg (25-35); MEAN CORPUSCULAR HGB CONC 33 g/dL (31-37); MEAN CORPUSCULAR VOLUME 97 fL (79-100); MONO % 9 % (0-9); NEUT # 7.5 x10^3uL (1.8-7.7); NEUT % 68 % (31-73); PLATELET COUNT 278 x10^3/uL (140-400); RED BLOOD COUNT 4.52 x10^6/uL (3.50-5.40); WHITE BLOOD COUNT 11.1 x10^3/uL (4.0-11.0)
[2022-02-04 05:52] LABS: CALCIUM 8.9 mg/dL (8.5-10.1); CREATININE 1.1 mg/dL (0.6-1.0); POTASSIUM 3.6 mmol/L (3.5-5.1)
[2022-02-04 05:54] LABS: BARBITURATES NEG (NEG); BENZODIAZEPINES NEG (NEG); CANNABINOIDS POS (NEG); COCAINE NEG (NEG); METHADONE NEG (NEG); OPIATES NEG (NEG); PHENCYCLIDINE NEG (NEG)
[2022-02-04 05:57] LABS: INFLUENZA A PATIENT NEGATIVE (NEGATIVE); INFLUENZA B PATIENT NEGATIVE (NEGATIVE)
[2022-02-04 05:57] LABS: AMPHETAMINE/METHAMPHETAMINE NEG (NEG)
[2022-02-04 05:58] LABS: ALBUMIN 4.1 g/dL (3.4-5.0); DIRECT BILIRUBIN 0.2 mg/dL (0.0-0.2); TOTAL BILIRUBIN 1.1 mg/dL (0.2-1.0)
--- NOTE | 2022-02-04 06:06 | RAD ---
EXAM: Frontal view of the chest, AP views of the abdomen in upright and supine positions. CLINICAL INDICATION: Reason: pain / Spl. Instructions: / History: COMPARISON: None. FINDINGS and IMPRESSION: The heart is not enlarged. Mediastinal and hilar contours are normal. No focal parenchymal airspace o pacity. No pleural effusion or pneumothorax. No abnormal small or large bowel dilatation. Moderate to large volume right colonic stool content co uld be seen with constipation. No abnormal soft tissue mass effect. No suspicious calcifications ar e seen. No free intraperitoneal gas. Cholecystectomy clips are seen. Electronically signed by: Cassius Gardner MD (02/04/2022 6:04 AM) JUVE
[2022-02-04 06:27] LABS: CLARITY,URINE CLEAR; COLOR,URINE YELLOW; GLUCOSE,URINE NEG (NEG)
[2022-02-04 06:28] LABS: BACTERIA,URINE FEW /HPF (0-FEW); NITRITE,URINE NEG (NEG); SQUAMOUS EPITHELIAL CELL,UR FEW /LPF; UROBILINOGEN,URINE 0.2 mg/dL (0.2 mg/dL)
[2022-02-04] MEDS ORDERED: IOHEXOL 240 MG/ML 50ML VIAL. PO ONE (06:30)
[2022-02-04] MEDS ORDERED: CONTRAST GIVEN. MC PRN (06:30)
[2022-02-04] MEDS ORDERED: IOHEXOL 300 MG/ML 75 ML VIAL. IV ONE (06:30)
--- NOTE | 2022-02-04 06:34 | EKG ---
[address] [address] Test Date: 2022-02-04 Test Time: 05:37:35 Pat Name: ROBIN VILLARREAL Department: Room: Gender: F Continuous Improvement Facilitator: : 1995 Requested By: DARVIN ROGERS Order Number: [id number] Reading MD: Tha Correa Measurements Intervals [place] Rate: 93 P: 45 NH: 164 QRS: 70 QRSD: 78 T: 27 QT: 350 QTc: 438 Interpretive Statements SINUS RHYTHM NORMAL ECG RI6.02 Compared to ECG 09/04/2017 13:17:45 No significant changes Electronically Signed On 02-05-2022 13:21:11 CDT by Tha Correa
[2022-02-04] MEDS ORDERED: HALOPERIDOL LACT 5 MG/ML VIAL. IVP ONE (07:00)
--- NOTE | 2022-02-04 08:03 | RAD ---
INDICATION: Reason: OMNI 300,75ML IV.OMNI 240,30ML PO.ABD PAIN,NAUSEA / Spl. Instructions: HX CHOLECY STECTOMY / History: COMPARISON: February 01, 2022 TECHNIQUE: Axial CT images were obtained through the abdomen and pelvis with intravenous contrast. One or more of the following individualized dose reduction techniques were utilized for this examinat ion: 1. Automated exposure control; 2. Adjustment of the mA and/or kV according to patient size; 3 . Use of iterative reconstruction technique. FINDINGS: Small hiatal hernia. Vascular: No abdominal aortic aneurysm. Hepatobiliary: Postcholecystectomy changes. No liver mass is seen. Mild prominence of bile ducts whic h is commonly seen postoperatively. Pancreas: No peripancreatic edema. Spleen: Spleen unremarkable. Renal/Bladder: No hydronephrosis. Urinary bladder has minimal urine within it with prominence of the wall. Gastrointestinal: No periappendiceal inflammatory changes. There is again some fatty infiltration of the wall of the large bowel. IMPRESSION: * No evidence of bowel obstruction or appendicitis. * Urinary bladder is only partially distended with some prominence of the wall seen. This is similar to prior therefore may be the patient's baseline appearance. * There is a couple of disc protrusions within the lumbar spine most prominent at L4-5 where there i s associated moderate central canal stenosis. Would correlate with symptoms. Electronically signed by: Aj Jones MD (02/04/2022 8:01 AM) [id number]
[2022-02-04 09:00] VITALS: BP 152/80
== END 2022-02-04 09:20 | disposition home or self-care (01) ==
LOC: ER 04:57
DX: K52.9 Noninfective gastroenteritis and colitis, unspecified (principal); K29.70 Gastritis, unspecified, without bleeding; E86.0 Dehydration; R79.89 Other specified abnormal findings of blood chemistry; D72.829 Elevated white blood cell count, unspecified; F12.10 Cannabis abuse, uncomplicated; Z20.822 Contact with and (suspected) exposure to COVID-19; Z90.49 Acquired absence of other specified parts of digestive tract
CPT/HCPCS: 36415; 74022; 74177; 80048; 80076; 80307; 81001; 81025; 82150; 82550; 83690; 84484; 85025; 85610; 85730; 86705; 86709; 86803; 87340; 87428; 93005; 96361; 96374; 96375; 96376; 99285; G0480; J0780; J1200; J1630; J1885; J2405; J3490; J7120; Q9966; Q9967

== ENCOUNTER 2022-02-09 11:54 | Emergency (ER) | payer SELFPAY ==
[~2022-02-09] VITALS: Ht 160 cm; Wt 74.8 kg
[2022-02-09] MEDS ORDERED: IV NORMAL SALINE 1,000ML 1,000 ML IV SCH (12:15)
[2022-02-09] MEDS ORDERED: ONDANSETRON PF 4 MG/2 ML VIAL. IVP ONE (12:15)
--- NOTE | 2022-02-09 12:16 | PHYS DOC ---
Past History Past Medical History: Other Additional Past Medical Histor: gastritis Past Surgical History: Cholecystectomy Smoking: Non-smoker Alcohol Use: None Drug Use: None, Marijuana General Adult EDM: Chief Complaint: ABDOMINAL PAIN HPI: HPI: Patient is a 26-year-old female who presents to the emergency department for right upper quadrant epigastric abdominal pain with nausea, vomiting and diarrhea that has been going on for the last 3 weeks. Patient has been seen multiple times in this emergency department for similar complaints. She reports that she was discharged last night from [facility] for colitis and reports at that time they did endoscopy which did not show any acute findings. Patient states she also received IV antibiotics. Patient does not follow-up with a GI doctor. She rates her pain 10 out of 10. No radiation of pain. No treatment for symptoms. Patient denies urinary complaints, blood in her stools or vomit, fevers. She reports that the last time she smoked marijuana was 3 weeks ago. Review of Systems: Review of Systems: Constitutional: See HPI GI: See HPI : See HPI Musculoskeletal: Denies flank pain Allergies: Allergies: Allergies Coded Allergies Type Severity Reaction Last Updated Verified No Known Drug Allergies 02/09/22 No Physical Exam: PE: Constitutional: Well developed, well nourished, no acute distress, non-toxic appearance. [] HENT: Normocephalic, atraumatic, bilateral external ears normal, oropharynx moist, no oral exudates, nose normal. [] Eyes: PERRL, EOMI, conjunctiva normal, no discharge. [] Neck: Normal range of motion, no tenderness, supple, no stridor. [] Cardiovascular:Heart rate regular rhythm, no murmur [] Lungs & Thorax: Bilateral breath sounds clear to auscultation [] Abdomen: Bowel sounds normal, soft, right upper quadrant and epigastric abdomin al pain with tenderness, no abdominal rigidity or guarding, no masses, no pulsatile masses. [] Skin: Warm, dry, no erythema, no rash. [] Back: No tenderness, no CVA tenderness. [] Extremities: No tenderness, no cyanosis, no clubbing, ROM intact, no edema. [] Neurologic: Alert and oriented X 3, normal motor function, normal sensory function, no focal deficits noted. [] Psychologic: Affect normal, judgement normal, mood normal. [] Current Patient Data: Labs: Laboratory Tests Test 02/09/22 12:35 02/09/22 14:24 White Blood Count 12.1 x10^3/uL Red Blood Count 4.73 x10^6/uL Hemoglobin 15.3 g/dL Hematocrit 45.3 % Mean Corpuscular Volume 96 fL Mean Corpuscular Hemoglobin 32 pg Mean Corpuscular Hemoglobin Concent 34 g/dL Red Cell Distribution Width 13.1 % Platelet Count 280 x10^3/uL Neutrophils (%) (Auto) 80 % Lymphocytes (%) (Auto) 11 % Monocytes (%) (Auto) 8 % Eosinophils (%) (Auto) 0 % Basophils (%) (Auto) 1 % Neutrophils # (Auto) 9.6 x10^3uL Lymphocytes # (Auto) 1.4 x10^3/uL Monocytes # (Auto) 1.0 x10^3/uL Eosinophils # (Auto) 0.0 x10^3/uL Basophils # (Auto) 0.1 x10^3/uL Sodium Level 137 mmol/L Potassium Level 3.8 mmol/L Chloride Level 102 mmol/L Carbon Dioxide Level 25 mmol/L Anion Gap 10 Blood Urea Nitrogen 9 mg/dL Creatinine 0.9 mg/dL Estimated GFR (Cockcroft-Gault) 76.9 BUN/Creatinine Ratio 10 Glucose Level 105 mg/dL Calcium Level 9.0 mg/dL Total Bilirubin 1.2 mg/dL Aspartate Amino Transf (AST/SGOT) 20 U/L Alanine Aminotransferase (ALT/SGPT) 22 U/L Alkaline Phosphatase 63 U/L Total Protein 7.3 g/dL Albumin 4.0 g/dL Albumin/Globulin Ratio 1.2 Lipase 58 U/L Bedside Urine HCG, Qualitative hcg negative Current Medications Medications (Trade) Dose Ordered Sig/Luiza Route PRN Reason Start Time Stop Time Status Last Admin Dose Admin Sodium Chloride 1,000 ml @ 1,000 mls/hr Q1H IV 02/09/22 12:15 02/09/22 13:14 DC 02/09/22 12:24 Ondansetron HCl (Zofran) 4 mg 1X ONCE IVP 02/09/22 12:15 02/09/22 12:16 DC 02/09/22 12:25 Iohexol (Omnipaque 300 Mg/ml) 75 ml 1X ONCE IV 02/09/22 12:45 02/09/22 12:46 DC 02/09/22 13:24 Haloperidol Lactate (Haldol) 5 mg 1X ONCE IVP 02/09/22 14:00 02/09/22 14:23 DC 02/09/22 14:18 Morphine Sulfate (Morphine 2mg Syringe) 2 mg 1X ONCE IV 02/09/22 14:15 02/09/22 14:19 DC 02/09/22 14:21 Dicyclomine HCl (Bentyl) 10 mg 1X ONCE IM 02/09/22 14:30 02/09/22 14:31 DC 02/09/22 14:26 Morphine Sulfate (Morphine 2mg Syringe) 2 mg STK-MED ONCE .ROUTE 02/09/22 14:15 02/09/22 14:19 DC Vital Signs: Vital Signs Date Time Temp Pulse Resp B/P (MAP) Pulse Ox O2 Delivery O2 Flow Rate FiO2 02/09/22 12:00 98.1 98 24 163/116 (132) 100 EKG: EKG: EKG performed by ER staff at 1354 shows sinus rhythm with rate of 87, QTc is 441, no STEMI read Dr. Maria [] Radiology/Procedures: Radiology/Procedures: [] One or more of the following individualized dose reduction techniques were utilized for this examination: 1. Automated exposure control 2. Adjustment of the mA and/or kV according to patient size 3. Use of iterative reconstruction technique. Findings: Lower chest: Lung bases are clear. The heart is normal in size. Liver: Normal. Gallbladder/Biliary Tree: Gallbladder is surgically absent. Bile ducts are normal. Pancreas: Normal. Spleen: Normal. Adrenal Glands: Normal Kidneys/Ureters/Bladder: Normal. No hydronephrosis. Ureters and bladder are nor mal. Reproductive Organs: Uterus is anteverted. Ovaries are normal in appearance for age. Stomach, small bowel, and colon: The stomach and small bowel are normal. The appendix is normal. There is mild diffuse colonic wall thickening. Vasculature: No aortic aneurysm. Lymph Nodes: No lymphadenopathy. Peritoneum and retroperitoneum: Trace free fluid in the pelvis. No pneumoperito neum. Bones: No acute osseous abnormality. Miscellaneous: None IMPRESSION: Mild colitis, likely infectious or inflammatory in etiology. Electronically signed by: Ade Soliz MD (02/09/2022 1:41 PM) [id number] DICTATED AND SIGNED BY: ADE SOLIZ MD DATE: 02/09/22 3940 CC: CAROL BAILEY APRN; PCP,NO ~ Heart Score: C/O Chest Pain: N/A Risk Factors: Risk Factors: DM, Current or recent (<one month) smoker, HTN, HLP, family history of CAD, obesity. Risk Scores: Score 0 - 3: 2.5% MACE over next 6 weeks - Discharge Home Score 4 - 6: 20.3% MACE over next 6 weeks - Admit for Clinical Observation Score 7 - 10: 72.7% MACE over next 6 weeks - Early Invasive Strategies Course & Med Decision Making: Course & Med Decision Making Pertinent Labs and Imaging studies reviewed. (See chart for details) [] Presents to the emergency department for right upper quadrant and epigastric abdominal pain with nausea, vomiting and diarrhea x3 weeks. Patient reports that she was admitted at [facility] and discharged last night for colitis and at that time she did see a GI doctor did have endoscopy and have IV antibiotics. Patient work-up in the ER consisted of blood work including lipase, urinalysis, UDS and test, CT imaging of abdomen and pelvis. Patient treated with IV fluids and nausea medication. Patient does have a history of marijuana use, unsure if patient is experiencing hyperemesis due to her cannabinoid use therefore she will be treated with Haldol. EKG obtained prior to Haldol administration. Following Haldol administration, patient is no longer having nausea or vomiting. CT scan does show colitis. She was able to drink some Gatorade without vomiting. Mild leukocytosis likely due to nausea and vomiting. Discussed case with supervising physician. Patient will be discharged home with an antibiotic for infectious colitis. Patient will also be discharged home with nausea medication. Her vital signs are stable. She is advised to follow-up with her primary care provider. Given GI referral information. I discussed with patient all findings and diagnostic testing as well as the need to follow-up with PCP for further evaluation and treatment or return to the ER if any new or worsening symptoms. Strict return precautions were also discussed at length. Patient voiced understanding and agreement with the plan. Patient is hemodynamically stable at the time of disposition. Dragon Disclaimer: Dragon Disclaimer: This electronic medical record was generated, in whole or in part, using a voice recognition dictation system. Departure Departure: Impression: Primary Impression: Colitis Disposition: HOME / SELF CARE / HOMELESS Condition: GOOD Referrals: PCPJENNIFER (PCP) Patient Instructions: Colitis Additional Instructions: You are seen in the emergency department for nausea and vomiting. Your CT scan showed colitis. You are being discharged home with nausea medication that you can take as needed. You are also being discharged home with an antibiotic. Please start and finish it completely. Increase your fluids. Eat a bland diet. We recommend the brat diet which is bananas, rice, applesauce and toast. These follow-up with your primary care provider tomorrow regarding your ER visit. If you develop worsening of your abdominal pain, intractable nausea or vomiting, high fevers refractory to treatment, weakness, blood in your stools or vomit please return to the hospital which you saw the GI doctor for you to return to this ER. Scripts Azithromycin (AZITHROMYCIN TABLET) 500 Mg Tablet 1 TAB PO DAILY for infection for 5 Days, #5 TAB 0 Refills Prov: CAROL BAILEY APRN 02/09/22 Ondansetron (ONDANSETRON ODT) 4 Mg Tab.rapdis 1 TAB PO PRN Q6-8HRS for nausea for 7 Days, #28 TAB 0 Refills Prov: CAROL BAILEY APRN 02/09/22 CAROL BAILEY APRN Feb 09, 2022 12:16
[2022-02-09] MEDS ORDERED: IOHEXOL 300 MG/ML 75 ML VIAL. IV ONE (12:45)
[2022-02-09 12:48] LABS: BASO # 0.1 x10^3/uL (0.0-0.2); BASO % 1 % (0-3); EOS % 0 % (0-3); HEMATOCRIT 45.3 % (36.0-47.0); HEMOGLOBIN 15.3 g/dL (12.0-15.5); LYMPH # 1.4 x10^3/uL (1.0-4.8); LYMPH % 11 % (24-48); MEAN CORPUSCULAR HEMOGLOBIN 32 pg (25-35); MEAN CORPUSCULAR HGB CONC 34 g/dL (31-37); MEAN CORPUSCULAR VOLUME 96 fL (79-100); MONO % 8 % (0-9); NEUT # 9.6 x10^3uL (1.8-7.7); NEUT % 80 % (31-73); PLATELET COUNT 280 x10^3/uL (140-400); RED BLOOD COUNT 4.73 x10^6/uL (3.50-5.40); RED CELL DISTRIBUTION WIDTH 13.1 % (11.5-14.5); WHITE BLOOD COUNT 12.1 x10^3/uL (4.0-11.0)
[2022-02-09 12:59] LABS: CREATININE 0.9 mg/dL (0.6-1.0); GFR 76.9; POTASSIUM 3.8 mmol/L (3.5-5.1)
[2022-02-09 13:05] LABS: ALBUMIN/GLOBULIN RATIO 1.2 (1.0-1.7); TOTAL BILIRUBIN 1.2 mg/dL (0.2-1.0); TOTAL PROTEIN 7.3 g/dL (6.4-8.2)
--- NOTE | 2022-02-09 13:43 | RAD ---
Exam: CT abdomen/pelvis with intravenous contrast Indication: Abdominal pain and epigastric pain, right upper quadrant pain. Intestinal infection Comparison: CT abdomen pelvis 02/04/2022 Technique: Helical CT imaging performed of the abdomen and pelvis after the intravenous administratio n of contrast. Sagittal and coronal reformats were obtained. One or more of the following individualized dose reduction techniques were utilized for this examinat ion: 1. Automated exposure control 2. Adjustment of the mA and/or kV according to patient size 3. Use of iterative reconstruction technique. Findings: Lower chest: Lung bases are clear. The heart is normal in size. Liver: Normal. Gallbladder/Biliary Tree: Gallbladder is surgically absent. Bile ducts are normal. Pancreas: Normal. Spleen: Normal. Adrenal Glands: Normal Kidneys/Ureters/Bladder: Normal. No hydronephrosis. Ureters and bladder are normal. Reproductive Organs: Uterus is anteverted. Ovaries are normal in appearance for age. Stomach, small bowel, and colon: The stomach and small bowel are normal. The appendix is normal. Ther e is mild diffuse colonic wall thickening. Vasculature: No aortic aneurysm. Lymph Nodes: No lymphadenopathy. Peritoneum and retroperitoneum: Trace free fluid in the pelvis. No pneumoperitoneum. Bones: No acute osseous abnormality. Miscellaneous: None IMPRESSION: Mild colitis, likely infectious or inflammatory in etiology. Electronically signed by: Ade Soliz MD (02/09/2022 1:41 PM) [id number]
[2022-02-09] MEDS ORDERED: HALOPERIDOL LACT 5 MG/ML VIAL. IVP ONE (14:00)
--- NOTE | 2022-02-09 14:08 | EKG ---
[address] [address] Test Date: 2022-02-09 Test Time: 13:54:21 Pat Name: ROBIN VILLARREAL Department: Room: Gender: F Director Of Institutional Giving: KENNEDY : 1995 Requested By: CAROL BAILEY Order Number: [id number] Reading MD: Tha Correa Measurements Intervals [place] Rate: 87 P: 41 FL: 164 QRS: 70 QRSD: 74 T: 26 QT: 366 QTc: 441 Interpretive Statements SINUS RHYTHM NORMAL ECG RI6.01 Compared to ECG 02/04/2022 05:37:35 No significant changes Electronically Signed On 02-10-2022 18:10:05 CDT by Tha Correa
[2022-02-09] MEDS ORDERED: MORPHINE SULFATE 2 MG/ML DISP.SYRIN. IV ONE (14:15)
[2022-02-09] MEDS ORDERED: MORPHINE SULFATE 2 MG/ML DISP.SYRIN. ONE (14:15)
[2022-02-09] MEDS ORDERED: DICYCLOMINE 20 MG/2 ML VIAL. IM ONE (14:30)
[2022-02-09] MEDS ORDERED: ONDA4TAB12 PO (15:38)
[2022-02-09] MEDS ORDERED: AZIT500T4 PO (15:38)
[2022-02-09 15:54] LABS: BACTERIA,URINE 0 /HPF (0-FEW); CLARITY,URINE CLEAR; COLOR,URINE YELLOW; GLUCOSE,URINE NEG (NEG); NITRITE,URINE NEG (NEG); RBC,URINE OCC /HPF (0-2); SQUAMOUS EPITHELIAL CELL,UR MOD /LPF; UROBILINOGEN,URINE 0.2 mg/dL (0.2 mg/dL); WBC,URINE 0 /HPF (0-4)
[2022-02-09 15:55] LABS: BARBITURATES NEG (NEG); BENZODIAZEPINES NEG (NEG); CANNABINOIDS POS (NEG); COCAINE NEG (NEG); METHADONE NEG (NEG); OPIATES POS (NEG); PHENCYCLIDINE NEG (NEG)
[2022-02-09 15:57] LABS: AMPHETAMINE/METHAMPHETAMINE NEG (NEG)
[2022-02-09 16:00] VITALS: BP 116/86
== END 2022-02-09 16:05 | disposition home or self-care (01) ==
LOC: ER 11:54
DX: K52.9 Noninfective gastroenteritis and colitis, unspecified (principal); Z90.49 Acquired absence of other specified parts of digestive tract
CPT/HCPCS: 36415; 74177; 80053; 80307; 81001; 81025; 83690; 85025; 93005; 96361; 96372; 96374; 96375; 99285; J0500; J1630; J2270; J2405; J7030; Q9967; 99284